=== PATIENT | female | born 1930 | race Caucasian/White ===

== ENCOUNTER 2017-10-01 14:30 | Inpatient (IN) | payer OTHER ==
[2017-10-01 15:22] LABS: ABS Basophils 0 10^3/ul (0-0.2); ABS Eosinophils 0 10^3/ul (0-0.6); ABS Lymphocytes 0.5 10^3/ul (1.0-4.8); ABS Monocytes 0.8 10^3/ul (0-0.8); ABS Neutrophils 6.6 10^3/ul (1.5-7.7); ABS Nucleated RBC 0 10^3/ul; Eosinophil % 0.2 % (0-6); Hematocrit 33 % (35-47); Hemoglobin 10.8 g/dl (12.0-16.0); Mean Corpuscular HGB Conc 33 g/dl (31-36); Mean Corpuscular Hemoglobin 27 pg (27-31); Mean Corpuscular Volume 84 fL (80-97); Mean Platelet Volume 9 um3 (7.4-10.4); Nucleated Red Blood Cells % 0; Platelet Count 146 10^3/ul (150-450); Red Blood Count 3.93 10^6/ul (4.0-5.4); Red Cell Distribution Width 15 % (10.5-15); White Blood Count 7.9 10^3/ul (3.5-10.8)
[2017-10-01 15:34] LABS: EGFR Non-African American 27.6 (>60)
--- NOTE | 2017-10-01 16:05 | RAD ---
HISTORY: Knee pain COMPARISONS: None relevant available time dictation VIEWS: 7, Frontal and lateral views of the right knee and of the right femur FINDINGS: BONE DENSITY: There is diffuse osteopenia. BONES: There is a comminuted, angulated, and displaced fracture of the distal femoral diaphysis. The patient is status post right hip arthroplasty. There is no appreciable periprosthetic fracture. JOINTS: There is osteoporosis of the right knee. The patient is status post right hip arthroplasty. ALIGNMENT: There is no dislocation. SOFT TISSUES: There is peripheral arterial calcification. OTHER FINDINGS: None. IMPRESSION: 1. COMMINUTED, ANGULATED, AND DISPLACED FRACTURE OF THE DISTAL RIGHT FEMUR. 2. STATUS POST RIGHT HIP ARTHROPLASTY. 3. OSTEOPENIA. 4. OSTEOARTHRITIS. 5. PERIPHERAL ARTERIAL DISEASE
--- NOTE | 2017-10-01 16:06 | RAD ---
HISTORY: Femur fracture COMPARISONS: April 06, 2016 VIEWS: 1: frontal portable view of the chest at 3:42 PM FINDINGS: LINES AND TUBES: None. CARDIOMEDIASTINAL SILHOUETTE: The cardiac silhouette is enlarged. Annular calcifications are noted. The cardiomediastinal silhouette is otherwise normal for portable technique. PLEURA: The costophrenic angles are sharp. No pleural abnormalities are noted. LUNG PARENCHYMA: The lungs are clear. ABDOMEN: The upper abdomen is clear. There is no subphrenic gas. BONES AND SOFT TISSUES: Degenerative changes are noted along the spine. IMPRESSION: CARDIOMEGALY
--- NOTE | 2017-10-01 16:09 | RAD ---
HISTORY: Right femur fracture COMPARISONS: December 07, 2014 VIEWS: 1, Single frontal view of the pelvis FINDINGS: BONE DENSITY: There is diffuse osteopenia. BONES: The patient is status post internal fixation of the left femur. The patient is status post right hip arthroplasty. There is no displaced fracture. JOINTS: The patient is status post right hip arthroplasty. There is mild osteophytosis of the left hip and SI joints. ALIGNMENT: There is no dislocation. SOFT TISSUES: There is peripheral arterial calcification. OTHER FINDINGS: None. IMPRESSION: 1. OSTEOPENIA. 2. OSTEOARTHRITIS. 3. PERIPHERAL ARTERIAL DISEASE. 4. STATUS POST RIGHT HIP ARTHROPLASTY AND INTERNAL FIXATION OF THE LEFT FEMUR. 5. NO ACUTE OSSEOUS INJURY. THE DEGREE OF OSTEOPENIA MAY MAKE A NONDISPLACED FRACTURE RADIOGRAPHICALLY OCCULT. IF SYMPTOMS PERSIST, RECOMMEND REPEAT IMAGING.
[2017-10-01] MEDS ORDERED: Al Hydrox/Mg Hydrox/Simet LIQ* 30 ML UDC PO PRN (17:19)
[2017-10-01] MEDS ORDERED: Acetaminophen TAB* 325 MG PO PRN (17:19)
--- NOTE | 2017-10-01 17:43 | ED ---
Indio Crews Nilda, scribed for Sher Swartz MD on 10/01/17 at 1509 . Lower Extremity - HPI Summary HPI Summary: This patient is an 86 year old F BIBA with a chief complaint of constant pain in right knee s/p sliding out of wheel chair at home today, per triage note. The patient rates the pain 5/10 in severity. Symptoms aggravated and alleviated by nothing. Upon entering the room, patient denies pain, SOB, and cough, stating that she feels quite healthy. Triage note states recent sick contacts with family members who have flu and are having difficulty taking care of patient. - History of Current Complaint Chief Complaint: EDExtremityLower Stated Complaint: WEAKNESS,FLU LIKE SYMPTOMS Time Seen by Provider: 10/01/17 14:45 Hx Obtained From: Patient, Medical Records Mechanism Of Injury: Other - sliding out of wheel chair Onset/Duration: Still Present Severity Currently: Moderate Pain Intensity: 5 Pain Scale Used: 0-10 Numeric Timing: Constant Location: Is Discrete @ - RLE, Right knee Associated Signs And Symptoms: Positive: Other - SOB and cough Aggravating Factor(s): Nothing Alleviating Factor(s): Nothing - Allergies/Home Medications Allergies/Adverse Reactions: Allergies Allergy/AdvReac Type Severity Reaction Status Date / Time No Known Allergies Allergy Verified 10/01/17 14:43 Home Medications: Home Medications Acetaminophen [Acetaminophen Extra Strength] 1,000 mg PO TID PRN 10/01/17 [ History Confirmed 10/01/17] Calcium Carbonate/Vitamin D3 [Calcium 600 + Vit D Tablet] 1 each PO BID [History Confirmed 10/01/17] Carvedilol TAB* [Coreg TAB*] 6.25 mg PO BID 10/01/17 [History Confirmed 10/01/17 ] Cholecalciferol TAB* [Vitamin D TAB*] 2,000 units PO DAILY 10/01/17 [History Confirmed 10/01/17] Docusate CAP* [Colace Cap*] 100 mg PO BID PRN 10/01/17 [History Confirmed ] Ferrous Sulfate TAB* 325 mg PO BID 10/01/17 [History Confirmed 10/01/17] Lactulose* 30 ml PO Q6HR PRN 10/01/17 [History Confirmed 10/01/17] Senna TAB* [Senokot TAB*] 1 tab PO DAILY PRN 10/01/17 [History Confirmed ] Warfarin TAB(*) [Coumadin TAB(*)] 4.5 mg PO DAILY 10/01/17 [History Confirmed ] PMH/Surg Hx/FS Hx/Imm Hx Endocrine/Hematology History: Denies: Hx Anticoagulant Therapy Cardiovascular History: Reports: Hx Congestive Heart Failure, Hx Hypertension, Other Cardiovascular Problems/Disorders - a-fib Denies: Hx Pacemaker/ICD Respiratory History: Reports: Hx Chronic Obstructive Pulmonary Disease (COPD) GI History: Reports: Hx Gastroesophageal Reflux Disease, Other GI Disorders - "slow bowels" History: Reports: Hx Chronic Renal Failure Sensory History: Denies: Hx Cataracts, Hx Contacts or Glasses, Hx Eye Injury, Hx Hearing Aid Opthamlomology History: Denies: Hx Cataracts, Hx Contacts or Glasses, Hx Eye Injury Neurological History: Reports: Hx Dementia Comment Only: Other Neuro Impairments/Disorders - Forgetful Psychiatric History: Denies: Hx Panic Disorder - Surgical History Surgery Procedure, Year, and Place: RIGHT HIP Hx Anesthesia Reactions: No Infectious Disease History: No Infectious Disease History: Denies: Traveled Outside the [place] in Last 30 Days - Family History Known Family History: Positive: Hypertension - Social History Alcohol Use: None Substance Use Type: Reports: None Smoking Status (MU): Never Smoked Tobacco Review of Systems Negative: Shortness Of Breath, Cough Positive: Other - right knee pain All Other Systems Reviewed And Are Negative: Yes Physical Exam - Summary Physical Exam Summary: VITAL SIGNS: Reviewed. GENERAL: Patient is a well-developed and nourished female who is lying comfortable in the stretcher. Patient is not in any acute respiratory distress. HEAD AND FACE: No signs of trauma. No ecchymosis, hematomas or skull depressions. No sinus tenderness. EYES: PERRLA, EOMI x 2, No injected conjunctiva, no nystagmus. EARS: Hearing grossly intact. Ear canals and tympanic membranes are within normal limits. MOUTH: Oropharynx within normal limits except dry oral mucosa NECK: Supple, trachea is midline, no adenopathy, no JVD, no carotid bruit, no c- spine tenderness, neck with full ROM. CHEST: Symmetric, no tenderness at palpation LUNGS: Clear to auscultation bilaterally. No wheezing or crackles. CVS: Regular rate and rhythm, S1 and S2 present, no murmurs or gallops appreciated. ABDOMEN: Soft, non-tender. No signs of distention. No rebound no guarding, and no masses palpated. Bowel sounds are normal. EXTREMITIES: FROM in all major joints, no edema, no cyanosis or clubbing. Tenderness in the RLE and right knee NEURO: Alert. Mildly disoriented. No acute neurological deficits. Speech is normal and follows commands. SKIN: Dry and warm Triage Information Reviewed: Yes Vital Signs On Initial Exam: Initial Vitals Temp Pulse Resp BP Pulse Ox 98.7 F 88 16 134/80 92 10/01/17 14:39 10/01/17 14:39 10/01/17 14:39 10/01/17 14:39 10/01/17 14:39 Vital Signs Reviewed: Yes Diagnostics - Vital Signs Vital Signs Temp Pulse Resp BP Pulse Ox 10/01/17 14:44 86 92 10/01/17 14:42 134/80 10/01/17 14:39 98.7 F 88 16 134/80 92 - Laboratory Lab Results: Lab Results 10/01/17 10/01/17 Range/Units 15:13 15:13 WBC 7.9 (3.5-10.8) 10^3/ul RBC 3.93 L (4.0-5.4) 10^6/ul Hgb 10.8 L (12.0-16.0) g/dl Hct 33 L (35-47) % MCV 84 (80-97) fL MCH 27 (27-31) pg MCHC 33 (31-36) g/dl RDW 15 (10.5-15) % Plt Count 146 L (150-450) 10^3/ul MPV 9 (7.4-10.4) um3 Neut % (Auto) 83.0 (38-83) % Lymph % (Auto) 6.0 L (25-47) % [place] % (Auto) 10.4 H (1-9) % Eos % (Auto) 0.2 (0-6) % Baso % (Auto) 0.4 (0-2) % Absolute Neuts (auto) 6.6 (1.5-7.7) 10^3/ul Absolute Lymphs (auto) 0.5 L (1.0-4.8) 10^3/ul Absolute Monos (auto) 0.8 (0-0.8) 10^3/ul Absolute Eos (auto) 0 (0-0.6) 10^3/ul Absolute Basos (auto) 0 (0-0.2) 10^3/ul Absolute Nucleated RBC 0 10^3/ul Nucleated RBC % 0 Sodium 135 (133-145) mmol/L Potassium 4.6 (3.5-5.0) mmol/L Chloride 102 (101-111) mmol/L Carbon Dioxide 27 (22-32) mmol/L Anion Gap 6 (2-11) mmol/L BUN 29 H (6-24) mg/dL Creatinine 1.75 H (0.51-0.95) mg/dL Est GFR ( Amer) 35.4 (>60) Est GFR (Non-Af Amer) 27.6 (>60) BUN/Creatinine Ratio 16.6 (8-20) Glucose 104 H (70-100) mg/dL Calcium 8.7 (8.6-10.3) mg/dL Magnesium 2.0 (1.9-2.7) mg/dL Total Bilirubin 0.80 (0.2-1.0) mg/dL AST 26 (13-39) U/L ALT 9 (7-52) U/L Alkaline Phosphatase 58 (34-104) U/L C-Reactive Protein 13.87 H (< 5.00) mg/L Total Protein 6.4 (6.4-8.9) g/dL Albumin 3.5 (3.2-5.2) g/dL Globulin 2.9 (2-4) g/dL Albumin/Globulin Ratio 1.2 (1-3) Result Diagrams: 10/01/17 15:13 10/01/17 15:13 Lab Statement: Any lab studies that have been ordered have been reviewed, and results considered in the medical decision making process. - Radiology CXR Radiology Interpretation Completed By: Radiologist - CXR, per radiologist, reveals cardiomegaly. Dr. Swartz has reviewed this radiology report. Femur XR Radiology Interpretation Completed By: Radiologist - Femur XR, per radiologist, reveals 1. COMMINUTED, ANGULATED, AND DISPLACED FRACTURE OF THE DISTAL RIGHT FEMUR. 2. STATUS POST RIGHT HIP ARTHROPLASTY. 3. OSTEOPENIA. 4. OSTEOARTHRITIS. 5. PERIPHERAL ARTERIAL DISEASE. Dr. Swartz has reviewed this radiology report. Knee XR Radiology Interpretation Completed By: Radiologist - Knee XR, per radiologist, reveals 1. COMMINUTED, ANGULATED, AND DISPLACED FRACTURE OF THE DISTAL RIGHT FEMUR. 2. STATUS POST RIGHT HIP ARTHROPLASTY. 3. OSTEOPENIA. 4. OSTEOARTHRITIS. 5. PERIPHERAL ARTERIAL DISEASE Dr. Swartz has reviewed this radiology report. Pelvis XR Radiology Interpretation Completed By: Radiologist - Knee XR, per radiologist, reveals 1. COMMINUTED, ANGULATED, AND DISPLACED FRACTURE OF THE DISTAL RIGHT FEMUR. 2. STATUS POST RIGHT HIP ARTHROPLASTY. 3. OSTEOPENIA. 4. OSTEOARTHRITIS. 5. PERIPHERAL ARTERIAL DISEASE Dr. Swartz has reviewed this radiology report. Lower Extremity Course/Dx - Course Assessment/Plan: This patient is an 86 year old F BIBA with a chief complaint of constant pain in right knee s/p sliding out of wheel chair at home today, per triage note. The patient rates the pain 5/10 in severity. Symptoms aggravated and alleviated by nothing. Upon entering the room, patient denies pain, SOB, and cough, stating that she feels quite healthy. Triage note states recent sick contacts with family members who have flu and are having difficulty taking care of patient. Test results show slight anemia, renal insufficiency. CXR, per radiologist, reveals cardiomegaly. Dr. Swartz has reviewed this radiology report. Femur XR, per radiologist, reveals 1. COMMINUTED, ANGULATED, AND DISPLACED FRACTURE OF THE DISTAL RIGHT FEMUR. 2. STATUS POST RIGHT HIP ARTHROPLASTY. 3. OSTEOPENIA. 4. OSTEOARTHRITIS. 5. PERIPHERAL ARTERIAL DISEASE. Dr. Swartz has reviewed this radiology report. Knee XR, per radiologist, reveals 1. COMMINUTED, ANGULATED, AND DISPLACED FRACTURE OF THE DISTAL RIGHT FEMUR. 2. STATUS POST RIGHT HIP ARTHROPLASTY. 3. OSTEOPENIA. 4. OSTEOARTHRITIS. 5. PERIPHERAL ARTERIAL DISEASE. Dr. Swartz has reviewed this radiology report. Pelvis XR, per radiologist, reveals 1. OSTEOPENIA. 2. OSTEOARTHRITIS. 3. PERIPHERAL ARTERIAL DISEASE. 4. STATUS POST RIGHT HIP ARTHROPLASTY AND INTERNAL FIXATION OF THE LEFT FEMUR. 5. NO ACUTE OSSEOUS INJURY. THE DEGREE OF OSTEOPENIA MAY MAKE A NONDISPLACED FRACTURE. RADIOGRAPHICALLY OCCULT. IF SYMPTOMS PERSIST, RECOMMEND REPEAT IMAGING. Dr. Swartz has reviewed this radiology report. In the ED Course, the patient remains stable. I discussed the case with Dr. Yuan (Ortho) and he will consult with this patient. I also discussed the case with Dr. Galvin ( Hospitalist) who accepted patient for admission. Patient is hemodynamically stable, alert, and not oriented. - Diagnoses Differential Diagnosis/HQI/PQRI: Positive: Bursitis, Cellulitis, Contusion, Dislocation, Fracture (Closed), Sprain, Strain Provider Diagnoses: Closed fracture of right distal femur, Confusion, Unable to care for herself - Physician Notifications Discussed Care Of Patient With: Emreson Yuan - Ortho Time Discussed With Above Provider: 16:11 Instructed by Provider To: Other - agrees to consult for pt tomorrow. Discharge - Discharge Plan Condition: Stable Disposition: ADMITTED TO [facility] Referrals: No Primary Care Phys,NOPCP [Primary Care Provider] - The documentation as recorded by the Indio linder Nilda accurately reflects the service I personally performed and the decisions made by me, Sher Swartz MD.
[2017-10-01] MEDS ORDERED: Enoxaparin(*) 40 MG/0.4 ML SYR SUBCUT SCH (18:00)
[2017-10-01 18:08] LABS: INR 1.79 (0.77-1.02)
[2017-10-01] MEDS ORDERED: Phytonadione Oral Solution* 5 MG/25 ML UDC PO ONE (20:00)
[2017-10-01] MEDS: Atorvastatin* 20 MG TAB PO SCH (20:03)
[2017-10-01] MEDS: Ferrous Sulfate TAB* 325 MG PO SCH (20:03)
[2017-10-01] MEDS: Carvedilol TAB* 6.25 MG PO SCH (20:05)
--- NOTE | 2017-10-01 22:08 | HP ---
ADDENDUM NOW INCLUDED ON THIS REPORT CC: [facility] * HISTORY AND PHYSICAL: DATE OF ADMISSION: 10/01/17 TIME OF ADMISSION: 5 p.m. CHIEF COMPLAINT: Fall. HISTORY OF PRESENT ILLNESS: This is an 86-year-old female with history of dementia, who was brought to the emergency department via EMS because her sister -in- law called. There are several different stories pertaining to the history of present illness. I spoke with her brother, Franky, who is her power of skinning machine feeder. He says that his called EMS because Ms. Gonsales had been weak this morning. She is usually able to walk from bed to the bathroom with a walker, but this morning she got up and walked a few steps and fell, so they called EMS. He also notes that she has been more weak recently and the rest of the family has influenza, so they were concerned that she may as well. Her nurse in the emergency department, however, reports a different report from EMS and says that they were called also because of the fall but that her family was ill and was unable to take care of her, so recommended that she be transferred to the emergency department. Either way, Ms. Gonsales is unable to provide the history to me. She does not know why she is here and has no pain or complaints. She does not recall falling this morning. PAST MEDICAL HISTORY: AFib, on anticoagulation; CVA; hypertension; hyperlipidemia; dementia; congestive heart failure of unknown etiology. HOME MEDICATIONS: 1. Furosemide 40 mg daily. 2. Warfarin 4.5 mg daily. 3. Calcium 1500 mg b.i.d. 4. Coreg 6.25 twice a day. 5. Simvastatin 40 mg daily. 6. Mirtazapine 30 mg daily. 7. Vitamin D 2000 units daily. 8. KCl 10 mEq daily. 9. Tylenol 1000 mg b.i.d. p.r.n. 10. Ferrous sulfate 325 mg b.i.d. 11. Colace 100 mg b.i.d. p.r.n. constipation. 12. Lactulose 30 mL q.6 hours p.r.n. constipation. 13. Senna tab daily p.r.n. constipation. ALLERGIES: No known drug allergies. SOCIAL HISTORY: She lives with her brother and his . He is her power of skinning machine feeder, his name is Franky. REVIEW OF SYSTEMS: A 12-point review of systems is negative. However, the reliability of this is quite poor due to dementia. PHYSICAL EXAMINATION GENERAL: Alert, elderly, pleasant female in no distress. She is oriented to person and knows she is in the hospital but does not know what city or state she is in and does not know the year. She has poor short-term recall, but is able to tell me that she lives with her brother and [id number] which is correct. VITAL SIGNS: Blood pressure 107/81, pulse ox 87% on room air, heart rate 84, temperature 98.7 degrees. HEENT: Pupils equal round and reactive to light at 2 mm bilaterally. Moist mucosa. No pharyngeal exudates. NECK: No cervical adenopathy. No JVP. LUNGS: Clear bilaterally. CHEST: Irregular rhythm. PMI is nondisplaced. ABDOMEN: Soft, nontender, and nondistended. No guarding or rebound. EXTREMITIES: The right leg is in an immobilizer. She is unable to lift the leg off the bed due to pain; however, she has good passive range of motion in the right hip. Her distal pulses are 2+, DP and PT, and distal sensation is intact. DIAGNOSTIC STUDIES/LAB DATA: Sodium 135, potassium 4.6, chloride 102, bicarb 27, creatinine 1.75, glucose 104. Troponin 0.05. TSH 1.29. Imaging: Chest x-ray shows cardiomegaly. Femur x-ray shows a comminuted angulated and displaced fracture of the distal right femur. ASSESSMENT AND PLAN: This is an 86-year-old female with history of atrial fibrillation, dementia, cerebrovascular accident, and chronic kidney disease, who is presenting after a fall from home. 1. Fall with femur fracture. It is unclear if she fell and caused the femur fracture or if she had the femur fracture, which caused her to fall this morning , either way she and her family are agreeable to surgical evaluation, so I am consulting Orthopedic Surgery. She requires no pain management at this time as she has no pain. I suspect this was a mechanical fall; however, after a surgical evaluation, she will certainly need physical therapy regardless. Given her family's report of increasing weakness over the past several days, I will also check her for influenza. Otherwise, on my exam and based on laboratory data, she has no evidence of an infectious or metabolic etiology of her fall. 2. Atrial fibrillation. She is on warfarin; however, an INR has not been checked. I will check this stat to ensure no coagulopathy in the setting of the femur fracture. 3. Cerebrovascular accident. Continue statin. She is not on an aspirin and I am unclear why not. We will hold for now until we can get more records as her family is unreliable. 4. Dementia. She is unable to make her own decision. Her power of skinning machine feeder is her brother, Franky. Franky can be reached at [phone]. I am concerned about her safety at home given the fracture and my inability to understand what has been occurring at home with her family. I would like to consult Social Work to evaluate her home setting to see if adult protective services would be appropriate for her. 5. Chronic kidney disease. Her renal function is at baseline. 6. Congestive heart failure. Her most recent echocardiogram was from 2014 and showed LVH with normal LV function at 50% to 55% with severely dilated left atrium and a low normal right ventricular systolic function. She has moderate- to-severe mitral regurgitation and [id number] tricuspid regurgitation. She is compensated at this time. 7. Disposition. Admit to Medicine with Ortho consult. 8. Diet. Unrestricted. 9. Activity. Bed rest. ADDENDUM: I discussed code status with Lara's brother, Franky. He is not ready to make this decision. He agrees that resuscitation would be more harmful than beneficial, but says he will think about it tonight and will be available to discuss this again. I suggested DNR and DNI given her dementia and other comorbidities and we will follow up on this conversation. [id number]/[facility] #: [id number]/[facility] #: [id number] EFREN
--- NOTE | 2017-10-01 22:16 | HP ---
HISTORY AND PHYSICAL: ADDENDUM: I discussed code status with Lara's brother, Franky. He is not ready to make this decision. He agrees that resuscitation would be more harmful than beneficial, but says he will think about it tonight and will be available to discuss this again. I suggested DNR and DNI given her dementia and other comorbidities and we will follow up on this conversation. [id number]/[facility]PS #: [id number] EFREN
--- NOTE | 2017-10-01 22:41 | HP ---
ORTHOPEDICS CONSULTATION/HISTORY AND PHYSICAL: DATE OF CONSULT/ADMISSION: 10/01/17 REQUESTING SERVICE: Emergency room. CONSULTING SERVICE: Orthopedics. CHIEF COMPLAINT: Right leg pain. HISTORY OF PRESENT ILLNESS: This is an 86-year-old woman who complains of right lower extremity pain, but does not recall the injury. Per report, she did fall out of her wheelchair at home earlier today as reported by family. Pain is worse with motion of the right lower extremity and alleviated at rest and mobilization. There is associated swelling but no bruising. PAST MEDICAL HISTORY: 1. Dementia. 2. CVA. 3. Hypertension. 4. Hyperlipidemia. 5. Atrial fibrillation. PAST SURGICAL HISTORY: Bilateral hip fracture surgery. MEDICATIONS: 1. Carvedilol. 2. Warfarin. 3. Senna. 4. Lactulose. 5. Docusate. 6. Acetaminophen. ALLERGIES: No known drug allergies. FAMILY HISTORY: Hypertension. SOCIAL HISTORY: Lives with her brother and his (brother is Franky Batesman, telephone #[phone]). At baseline she uses either a walker or wheelchair. REVIEW OF SYSTEMS: Negative for recent fever, visual changes, difficulty swallowing, chest pain, shortness of breath, abdominal pain, hematuria, easy bruising, diffuse weakness or lack of coordination, and diffuse rash. PHYSICAL EXAMINATION GENERAL: She is well appearing and in no apparent distress. VITAL SIGNS: Pulse rate 77, oxygen saturation 92%, blood pressure 107/59. CARDIOVASCULAR: Pulse examination demonstrates weak pedal pulses but feet that are warm and well perfused bilaterally. There are varicosities. Lung sounds clear bilaterally. ABDOMEN: Soft and nontender. LYMPHATIC: No lymphadenopathy appreciated. PSYCHIATRIC/NEUROLOGICAL: Appropriate affect. She is alert and oriented to person, but not place or time. No significant abnormality in coordination appreciated. She has normal reflex of the affected extremity. MUSCULOSKELETAL: She moves her bilateral upper extremities and left lower extremity without any pain. No evidence instability or tenderness. She has good strength. There is no gross deformity. Examination of the right lower extremity reveals the skin is intact. There is some swelling above the distal thigh. No ecchymosis. She is tender at the distal thigh as well. No tenderness in her leg. The foot is warm and well perfused, has weakly palpable dorsalis pedis pulse. Sensation is intact. She is able to flex and extend the ankle and toes. SKIN: Bilateral upper and left lower extremity exam demonstrates no ulcerative lesions. DIAGNOSTIC STUDIES/LAB DATA: X-rays of the right femur and knee do reveal a displaced distal femur fracture. She does have a hip hemiarthroplasty proximal to this. Hematocrit 33. Creatinine 1.75. ASSESSMENT AND PLAN: An 86-year-old woman with dementia, on warfarin, who appears to have fallen out of her wheelchair today and sustained a right closed distal femur fracture. Given the pattern of the injury, I do recommend surgical intervention for pain control and function. In the meantime, she should be in a knee immobilizer. She will be admitted to hospitalist service. I would like to check an INR given the warfarin. She should be n.p.o. after midnight. I spoke with her brother to discuss surgery as he is the healthcare proxy, we discussed the risks and benefits at length. We also discussed non-op treatment. He expressed his desire to move forward with surgery so we will plan on the operating room when she is medically cleared. [id number]/[facility] #: [id number] EFREN
[2017-10-02 05:10] LABS: ABS Basophils 0 10^3/ul (0-0.2); ABS Eosinophils 0 10^3/ul (0-0.6); ABS Lymphocytes 0.8 10^3/ul (1.0-4.8); ABS Monocytes 1.2 10^3/ul (0-0.8); ABS Nucleated RBC 0 10^3/ul; Eosinophil % 0 % (0-6); Hematocrit 30 % (35-47); Hemoglobin 9.9 g/dl (12.0-16.0); Lymphocyte % 9.7 % (25-47); Mean Corpuscular HGB Conc 33 g/dl (31-36); Mean Corpuscular Hemoglobin 28 pg (27-31); Mean Corpuscular Volume 84 fL (80-97); Mean Platelet Volume 9 um3 (7.4-10.4); Nucleated Red Blood Cells % 0; Platelet Count 131 10^3/ul (150-450); Red Blood Count 3.55 10^6/ul (4.0-5.4); Red Cell Distribution Width 15 % (10.5-15)
[2017-10-02 05:43] LABS: EGFR Non-African American 26.5 (>60)
[2017-10-02 08:20] LABS: INR 1.48 (0.77-1.02)
[2017-10-02] MEDS: Ferrous Sulfate TAB* 325 MG PO SCH ×2 (09:23→22:49)
[2017-10-02] MEDS: Furosemide TAB* 20 MG PO SCH (09:23)
[2017-10-02] MEDS: Potassium Chlor TAB* 10 MEQ TAB.ER PO SCH (09:23)
[2017-10-02] MEDS: Mirtazapine TAB* 15 MG PO SCH (09:23)
[2017-10-02] MEDS: Cholecalciferol TAB* 1000 UNITS PO SCH (09:24)
[2017-10-02] MEDS: Carvedilol TAB* 6.25 MG PO SCH ×2 (09:24→22:49)
[2017-10-02] MEDS ORDERED: Famotidine IV* 10 MG/ML 2 ML (20 mg) IV SLOW PU ONE (10:00)
[2017-10-02] MEDS: Oseltamivir SUSP 30 MG dose* 30 MG/5 ML ORAL.SYRIN PO SCH (12:02)
--- NOTE | 2017-10-02 12:45 | PN ---
Progress Note - Progress Note Date of Service: 10/02/17 Note: The risk-benefit ration for having ORIF of her fracture is not significantly changed by her diagnosis of influenza. If anything, I think her influenza is a reason to expedite her ORIF.
--- NOTE | 2017-10-02 12:49 | PN ---
Progress Note - Progress Note Date of Service: 10/02/17
--- NOTE | 2017-10-02 13:13 | PN ---
Subjective Date of Service: 10/02/17 Interval History: No c/o. Objective Active Medications: Acetaminophen (Tylenol Tab*) 650 mg PO Q4H PRN PRN Reason: FEVER/PAIN Last Admin: 10/02/17 01:41 Dose: 650 mg Al Hydrox/Mg Hydrox/Simethicone (Maalox Plus*) 30 ml PO Q6H PRN PRN Reason: INDIGESTION Atorvastatin Calcium (Lipitor*) 20 mg PO BEDTIME [facility] Last Admin: 10/01/17 20:03 Dose: 20 mg Carvedilol (Coreg Tab*) 6.25 mg PO BID [facility] Last Admin: 10/02/17 09:24 Dose: 6.25 mg Cholecalciferol (Vitamin D Tab*) 2,000 units PO DAILY [facility] Last Admin: 10/02/17 09:24 Dose: 2,000 units Docusate Sodium (Colace Cap*) 100 mg PO BID PRN PRN Reason: CONGESTION Ferrous Sulfate (Ferrous Sulfate Tab*) 325 mg PO BID [facility] Last Admin: 10/02/17 09:23 Dose: 325 mg Furosemide (Lasix Tab*) 20 mg PO DAILY [facility] Last Admin: 10/02/17 09:23 Dose: 20 mg Lactulose (Lactulose*) 30 ml PO Q6HR PRN PRN Reason: CONSTIPATION Mirtazapine (Remeron Tab*) 30 mg PO DAILY [facility] Last Admin: 10/02/17 09:23 Dose: 30 mg Oseltamivir Phosphate (Tamiflu Susp 30 Mg Dose*) 30 mg PO DAILY [facility] Last Admin: 10/02/17 12:02 Dose: 30 mg Potassium Chloride (Klor Con Er Tab*) 10 meq PO DAILY [facility] Last Admin: 10/02/17 09:23 Dose: 10 meq Senna (Senokot Tab*) 1 tab PO DAILY PRN PRN Reason: CONSTIPATION Warfarin Sodium (Coumadin Tab(*)) 4.5 mg PO DAILY@1700 [facility] PRN Reason: Protocol Vital Signs - 8 hr 10/02/17 10/02/17 07:45 07:46 Temperature 98.2 F Pulse Rate 154 Respiratory 18 20 Rate Blood Pressure 114/61 (mmHg) O2 Sat by Pulse 87 Oximetry Oxygen Devices in Use Now: None Appearance: Alert, partly up in bed. In good spirits. Looks comfortable. Eyes: No Scleral Icterus Respiratory: Symmetrical Chest Expansion and Respiratory Effort, Clear to Auscultation, Clear to Percussion Cardiovascular: NL Sounds; No Murmurs; No JVD, RRR, No Edema, - Extremities: No Edema, No Clubbing, Cyanosis, - - R leg everted, not shortened. Skin: No Nodules or Sclerosis, - - multiple seborrheic keratoses on trunk. Neurological: Alert and Oriented x 3 Result Diagrams: 10/02/17 05:03 10/02/17 05:03 Additional Lab and Data: Lab Results 10/01/17 10/01/17 Range/Units 15:13 15:13 WBC 7.9 (3.5-10.8) 10^3/ul RBC 3.93 L (4.0-5.4) 10^6/ul Hgb 10.8 L (12.0-16.0) g/dl Hct 33 L (35-47) % MCV 84 (80-97) fL MCH 27 (27-31) pg MCHC 33 (31-36) g/dl RDW 15 (10.5-15) % Plt Count 146 L (150-450) 10^3/ul MPV 9 (7.4-10.4) um3 Neut % (Auto) 83.0 (38-83) % Lymph % (Auto) 6.0 L (25-47) % [place] % (Auto) 10.4 H (1-9) % Eos % (Auto) 0.2 (0-6) % Baso % (Auto) 0.4 (0-2) % Absolute Neuts (auto) 6.6 (1.5-7.7) 10^3/ul Absolute Lymphs (auto) 0.5 L (1.0-4.8) 10^3/ul Absolute Monos (auto) 0.8 (0-0.8) 10^3/ul Absolute Eos (auto) 0 (0-0.6) 10^3/ul Absolute Basos (auto) 0 (0-0.2) 10^3/ul Absolute Nucleated RBC 0 10^3/ul Nucleated RBC % 0 Sodium 135 (133-145) mmol/L Potassium 4.6 (3.5-5.0) mmol/L Chloride 102 (101-111) mmol/L Carbon Dioxide 27 (22-32) mmol/L Anion Gap 6 (2-11) mmol/L BUN 29 H (6-24) mg/dL Creatinine 1.75 H (0.51-0.95) mg/dL Est GFR ( Amer) 35.4 (>60) Est GFR (Non-Af Amer) 27.6 (>60) BUN/Creatinine Ratio 16.6 (8-20) Glucose 104 H (70-100) mg/dL Calcium 8.7 (8.6-10.3) mg/dL Magnesium 2.0 (1.9-2.7) mg/dL Total Bilirubin 0.80 (0.2-1.0) mg/dL AST 26 (13-39) U/L ALT 9 (7-52) U/L Alkaline Phosphatase 58 (34-104) U/L C-Reactive Protein 13.87 H (< 5.00) mg/L Total Protein 6.4 (6.4-8.9) g/dL Albumin 3.5 (3.2-5.2) g/dL Globulin 2.9 (2-4) g/dL Albumin/Globulin Ratio 1.2 (1-3) Microbiology and Other Data: Microbiology 10/01/17 21:20 Influenza Types A,B Antigen (ARIANE) - Final Nasal Specimen received for Influenza A/B Molecular testing Assess/Plan/Problems-Billing Assessment: - Patient Problems (1) Fracture of distal end of right femur Current Visit: Yes Status: Acute Code(s): S72.401A - UNSP FRACTURE OF LOWER END OF RIGHT FEMUR, INIT FOR CLOS FX SNOMED Code(s): 560166576 Comment: For ORIF 10/02. INR 1.48 10/02. (2) Atrial fibrillation Current Visit: Yes Status: Acute Code(s): I48.91 - UNSPECIFIED ATRIAL FIBRILLATION SNOMED Code(s): 18984816 Comment: Resume warfarin post-op. INR 1.48 10/02. Contine carvedilol. (3) Influenza B Current Visit: Yes Status: Acute Code(s): J10.1 - FLU DUE TO OTH IDENT INFLUENZA VIRUS W OTH RESP MANIFEST SNOMED Code(s): 93192974 Comment: Complete oseltamivir course, dose adjusted for stage 3 CKD. (4) Dementia Current Visit: Yes Status: Acute Code(s): F03.90 - UNSPECIFIED DEMENTIA WITHOUT BEHAVIORAL DISTURBANCE SNOMED Code(s): 27904159 Comment: No behavior disturbances noted.
[2017-10-02] MEDS ORDERED: Bupivacaine 0.25% SDV* 30 ML ONE (14:50)
[2017-10-02] MEDS ORDERED: Midazolam* 1 MG/ML 10 ML VIAL (10 MG) ONE (15:02)
[2017-10-02] MEDS ORDERED: Atracurium* 10 MG/ML 10 ML VIAL ONE (15:02)
[2017-10-02] MEDS ORDERED: KETAMINE HCL* 50 MG/ML 10 ML VIAL ONE (15:02)
[2017-10-02] MEDS ORDERED: fentaNYL* 50 MCG/ML 2 ML VIAL (100 MCG VIAL) ONE (15:02)
[2017-10-02 15:43] LABS: INR 1.25 (0.77-1.02)
[2017-10-02] MEDS ORDERED: ceFAZolin 2 GM in 100 MLS NS (*) BAG IVPB ONE (16:20)
[2017-10-02] MEDS ORDERED: Bupivacaine 0.5% SDV PF* 10-30ML VIAL ONE ×2 (16:32→18:59)
[2017-10-02] MEDS ORDERED: Morphine PF AMP (0.5MG/ML)* 5 MG/10 ML AMP ONE (17:07)
[2017-10-02] MEDS ORDERED: Ondansetron INJ* 2 MG/ML VIAL IV PRN ×2 (18:10→18:11)
[2017-10-02] MEDS ORDERED: Naloxone* 0.4 MG/ML 1 ML VIAL IV PRN ×2 (18:10→18:11)
[2017-10-02] MEDS ORDERED: diPHENhydraMINE IV* 50 MG/ML 1 ml VIAL (BENADRYL) IV PRN (18:11)
[2017-10-02] MEDS ORDERED: EPINEPHRINE 1 MG/ML 1 ML VIAL ONE (19:00)
--- NOTE | 2017-10-02 20:39 | RAD ---
INDICATION: Femur fracture, trauma COMPARISONS: October 01, 2012 TECHNIQUE: Fluoroscopy was provided for a surgical procedure. Total fluoroscopy time is: 58 seconds FINDINGS: Spot images demonstrate internal fixation of the femur. IMPRESSION: FLUOROSCOPY WAS PROVIDED FOR A SURGICAL PROCEDURE CPT II Codes: 6045F
[2017-10-02] MEDS: Warfarin TAB(*) 1 MG PO SCH (22:48)
[2017-10-02] MEDS: Atorvastatin* 20 MG TAB PO SCH (22:48)
[2017-10-02] MEDS ORDERED: Morphine INJ* 2 MG/ML 1 ML CARPUJECT IV PRN (23:42)
[2017-10-03] MEDS ORDERED: NS 0.9% 500 ML* 500 ML IV ONE (00:42)
[2017-10-03] MEDS: ceFAZolin 1 GM* Q8H x 3 doses IVPB SCH ×6 (01:23→17:42)
[2017-10-03] MEDS: Enoxaparin(*) 30 MG/0.3 ML SYR SUBCUT SCH (01:24)
[2017-10-03] MEDS ORDERED: Morphine INJ* 2 MG/ML 1 ML CARPUJECT IV PRN (09:30)
[2017-10-03] MEDS: Mirtazapine TAB* 15 MG PO SCH (09:45)
[2017-10-03] MEDS: Potassium Chlor TAB* 10 MEQ TAB.ER PO SCH (09:45)
[2017-10-03] MEDS: Furosemide TAB* 20 MG PO SCH (09:46)
[2017-10-03] MEDS: Cholecalciferol TAB* 1000 UNITS PO SCH (09:46)
[2017-10-03] MEDS: Ferrous Sulfate TAB* 325 MG PO SCH (09:46)
[2017-10-03] MEDS: Carvedilol TAB* 6.25 MG PO SCH ×2 (09:51→22:05)
[2017-10-03] MEDS: Oseltamivir SUSP 30 MG dose* 30 MG/5 ML ORAL.SYRIN PO SCH (09:51)
--- NOTE | 2017-10-03 11:32 | PN ---
Progress Note - Progress Note Date of Service: 10/03/17 SOAP: Subjective: 86 y/o female with fall from wheelchair s/p ORIF R femur 10/02/2017. Patient with dementia baseline, denies pain, no questions. VSS. mild tachy, afebrile overnight (Tmax 100). Objective: General- well appearing, NAD AO resting in bed comfortably. MSK- Surgical dressing intact, + DF/PF with SITLT b/l LE, minimal edema R LE. non-palpable PT b/l, however b/l feet warm, well perfused. Vital Signs Temp 99 F 10/03/17 09:32 Pulse 91 10/03/17 07:36 Resp 16 10/03/17 08:10 BP 140/70 10/03/17 07:36 Pulse Ox 93 10/03/17 07:36 Intake & Output 10/02/17 10/03/17 10/03/17 18:59 06:59 18:59 Intake Total 0 1430 200 Balance 0 1430 200 Weight 79.923 kg Intake: IV Fluids 1030 NS (0.9%) 30 lr 1000 Oral 0 400 200 Other: Estimated Void Large # Bowel Movements 0 Estimated Blood Loss 100 Comment # Voids 1 Assessment: Stable 86 y/o female with fall from wheelchair s/p ORIF R femur 10/02/2017. Plan: - DVT prophylaxis- lovenox, OK to restart coumadin - Toe touch weight bearing R LE - Continue pain medication - Rehab D/C - Follow up with Dr. Yuan within 10-14 days post-op - PT consult- ROMAT, brace not needed Active Medications Generic Name Dose Route Start Last Admin Trade Name Freq PRN Reason Stop Dose Admin Acetaminophen 650 mg 10/02/17 18:13 Tylenol Tab* PO Q6H PRN FEVER/PAIN Al Hydrox/Mg Hydrox/Simethicone 30 ml 10/01/17 17:19 Maalox Plus* PO Q6H PRN INDIGESTION Atorvastatin Calcium 20 mg 10/01/17 21:00 10/02/17 22:48 Lipitor* PO 20 mg BEDTIME [facility] Administration Carvedilol 6.25 mg 10/01/17 21:00 10/03/17 09:51 Coreg Tab* PO 6.25 mg BID [facility] Administration Cholecalciferol 2,000 units 10/02/17 09:00 10/03/17 09:46 Vitamin D Tab* PO 2,000 units DAILY [facility] Administration Docusate Sodium 100 mg 10/01/17 17:24 Colace Cap* PO BID PRN CONGESTION Enoxaparin Sodium 30 mg 10/03/17 01:00 10/03/17 01:24 Lovenox(*) SUBCUT 30 mg Q24H [facility] Administration Ferrous Sulfate 325 mg 10/01/17 21:00 10/03/17 09:46 Ferrous Sulfate Tab* PO 325 mg BID [facility] Administration Furosemide 20 mg 10/02/17 09:00 10/03/17 09:46 Lasix Tab* PO 20 mg DAILY [facility] Administration Cefazolin Sodium 1 gm/ Sodium 50 mls @ 200 mls/hr 10/03/17 01:00 10/03/17 09: 42 Chloride IVPB 10/03/17 17:14 200 mls/hr Q8H [facility] Administration Lactulose 30 ml 10/01/17 17:24 Lactulose* PO Q6HR PRN CONSTIPATION Mirtazapine 30 mg 10/02/17 09:00 10/03/17 09:45 Remeron Tab* PO 30 mg DAILY [facility] Administration Morphine Sulfate 2 mg 10/03/17 09:30 Morphine Inj (Syringe)* IV Q2H PRN PAIN - BREAKTHROUGH Naloxone HCl 0.08 mg 10/02/17 18:10 Narcan* IV 10/03/17 18:09 Q2M PRN severe induced resp depression Oseltamivir Phosphate 30 mg 10/02/17 11:00 10/03/17 09:51 Tamiflu Susp 30 Mg Dose* PO 30 mg DAILY [facility] Administration Potassium Chloride 10 meq 10/02/17 09:00 10/03/17 09:45 Klor Con Er Tab* PO 10 meq DAILY [facility] Administration Senna 1 tab 10/01/17 17:24 Senokot Tab* PO DAILY PRN CONSTIPATION Warfarin Sodium 4.5 mg 10/02/17 17:00 10/02/17 22:48 Coumadin Tab(*) PO 4.5 mg DAILY@1700 [facility] Administration Protocol
--- NOTE | 2017-10-03 12:25 | PN ---
Progress Note - Progress Note Date of Service: 10/03/17 Note: Anesthesia duramorph followup, patient remains pleasantly confused, moves her legs, seems comfortable at rest, s/p femur ORIF, continue oral meds
--- NOTE | 2017-10-03 14:11 | OP ---
DATE OF OPERATION: 10/02/17 - ROOM #404 DATE OF : 30 SURGEON: Emerson Yuan MD IN STORE BANKER: KENRICK Ibarra. Shirin's assistance was necessary for positioning, retraction, instrumentation, and closure. ANESTHESIOLOGIST: Brian Farley MD ANESTHESIA: Spinal with a femoral nerve block. PRE-OP DIAGNOSIS: Right distal femur fracture. POST-OP DIAGNOSIS: Right distal femur fracture. OPERATIVE PROCEDURE: Open reduction and internal fixation of right distal femur fracture. ESTIMATED BLOOD LOSS: 100 cc. TOURNIQUET TIME: None. SPECIMENS: None. IMPLANTS: A 12-hole Synthes VA distal femur plate and Synthes locking screws. COMPLICATIONS: None. STATUS: Stable from the operating room to the recovery room and then back to the hospitalist service on the floor. INDICATIONS FOR PROCEDURE: Lara sustained a mechanical fall yesterday with a right distal femur fracture. I discussed both operative and nonoperative options with her healthcare proxy yesterday as well as today. After the discussion, he decided to move forward with surgery. We carefully reviewed the nature and risks of the surgery in detail. These included wound problems, infection, iatrogenic fracture, imperfect reduction, imperfect positioning of the hardware, hardware failure, need for further surgery, and even the chance of a catastrophic complication such as loss of limb or . DESCRIPTION OF PROCEDURE: Informed written consent was obtained from the healthcare proxy. The patient was then brought to the operating room and anesthesia was induced. The patient was carefully positioned on the Lazaro table and all bony prominences were padded with great care. A chlorhexidine based pre- scrub was used followed by a standard prep and drape with ChloraPrep. A surgical safety pause was then conducted in which we confirmed the appropriate patient, extremity, planned procedure, availability of equipment , indication and administration of prophylactic antibiotics. We began by using fluoroscopy to obtain a reduction with traction in external rotation. This made the alignment of the leg similar to her other side. I then made an approximately 12 cm incision over the lateral knee and distal femur. The dissection was carried down through the iliotibial band to the lateral distal femur. This was cleared off with a Guillen. The Guillen was then brought in a submuscular manner up the lateral side of the femur. I stayed on bone the entire time. A 12-hole Synthes distal femur variable angle locking plate was then slid submuscularly along the femur. Fluoroscopy was used to confirm adequate placement on AP and lateral views. Once we were happy with both the reduction and the placement of the plate, holding pins were placed in the distal fragment as well as in the most proximal hole on the plate. Then, the push- pull reduction instrument was used to pull the proximal femoral shaft closer to the plate. At this time, locking screws were placed in the distal fragment through the plate with the use of locking guide. She had very poor bone quality, so locking screws were used. I then placed screws in the proximal fragment in the femoral shaft and the plate crossed up to where her hip hemiarthroplasty was, so at this point a unicortical screw was used. Meticulous hemostasis was maintained throughout. Final fluoroscopic images were taken, which showed adequate reduction and placement of hardware. The wounds were copiously irrigated and closed in a layered fashion utilizing #1 Vicryl, 2-0 Vicryl and skin robert. A sterile dressing was then applied, and the patient was awakened from anesthesia and taken to the recovery room. All needle and sponge counts were correct at the end of the case. There were no complications. ATTESTATION: I attest that I was present, scrubbed and performed the entire procedure myself. POSTOPERATIVE PLAN: She will get Lovenox 40 sc daily until back to therapeutic on her Coumadin. She will be touch-down weightbearing on the right lower extremity with range of motion as tolerated at the hip and knee. I will see her back in the office in 2 weeks for likely skin staple removal. [id number]/[facility] #: [id number] EFREN
--- NOTE | 2017-10-03 14:39 | PN ---
Subjective Interval History: No c/o, denies pain. Objective Active Medications: Acetaminophen (Tylenol Tab*) 650 mg PO Q6H PRN PRN Reason: FEVER/PAIN Al Hydrox/Mg Hydrox/Simethicone (Maalox Plus*) 30 ml PO Q6H PRN PRN Reason: INDIGESTION Atorvastatin Calcium (Lipitor*) 20 mg PO BEDTIME [facility] Last Admin: 10/02/17 22:48 Dose: 20 mg Carvedilol (Coreg Tab*) 6.25 mg PO BID [facility] Last Admin: 10/03/17 09:51 Dose: 6.25 mg Cholecalciferol (Vitamin D Tab*) 2,000 units PO DAILY [facility] Last Admin: 10/03/17 09:46 Dose: 2,000 units Docusate Sodium (Colace Cap*) 100 mg PO BID PRN PRN Reason: CONGESTION Enoxaparin Sodium (Lovenox(*)) 30 mg SUBCUT Q24H [facility] Last Admin: 10/03/17 01:24 Dose: 30 mg Ferrous Sulfate (Ferrous Sulfate Tab*) 325 mg PO DAILY [facility] Furosemide (Lasix Tab*) 20 mg PO DAILY [facility] Last Admin: 10/03/17 09:46 Dose: 20 mg Cefazolin Sodium 1 gm/ Sodium (Chloride) 50 mls @ 200 mls/hr IVPB Q8H [facility] Stop: 10/03/17 17:14 Last Admin: 10/03/17 09:42 Dose: 200 mls/hr Lactulose (Lactulose*) 30 ml PO Q6HR PRN PRN Reason: CONSTIPATION Mirtazapine (Remeron Tab*) 15 mg PO DAILY [facility] Morphine Sulfate (Morphine Inj (Syringe)*) 2 mg IV Q2H PRN PRN Reason: PAIN - BREAKTHROUGH Naloxone HCl (Narcan*) 0.08 mg IV Q2M PRN PRN Reason: severe induced resp depression Stop: 10/03/17 18:09 Oseltamivir Phosphate (Tamiflu Susp 30 Mg Dose*) 30 mg PO DAILY [facility] Last Admin: 10/03/17 09:51 Dose: 30 mg Potassium Chloride (Klor Con Er Tab*) 10 meq PO DAILY [facility] Last Admin: 10/03/17 09:45 Dose: 10 meq Senna (Senokot Tab*) 1 tab PO DAILY PRN PRN Reason: CONSTIPATION Warfarin Sodium (Coumadin Tab(*)) 4.5 mg PO DAILY@1700 [facility] PRN Reason: Protocol Last Admin: 10/02/17 22:48 Dose: 4.5 mg Vital Signs - 8 hr 10/03/17 10/03/17 10/03/17 07:10 07:36 08:10 Temperature 100.1 F Pulse Rate 91 Respiratory 15 18 16 Rate Blood Pressure 140/70 (mmHg) O2 Sat by Pulse 93 Oximetry 10/03/17 09:32 Temperature 99 F Pulse Rate Respiratory Rate Blood Pressure (mmHg) O2 Sat by Pulse Oximetry Oxygen Devices in Use Now: None Appearance: Heaartly uin d, sleeping but arouses easily. Looks comfortable. In good spirits. Eyes: No Scleral Icterus Respiratory: Clear to Auscultation Cardiovascular: NL Sounds; No Murmurs; No JVD, RRR, No Edema, - Extremities: No Edema, No Clubbing, Cyanosis, - Skin: No Rash or Ulcers, No Nodules or Sclerosis, - Neurological: NL Sensation, - - Fair to poor verbal skills. She does not seem to know she just had an operation. Result Diagrams: 10/02/17 05:03 10/02/17 05:03 Additional Lab and Data: Lab Results 10/01/17 10/01/17 Range/Units 15:13 15:13 WBC 7.9 (3.5-10.8) 10^3/ul RBC 3.93 L (4.0-5.4) 10^6/ul Hgb 10.8 L (12.0-16.0) g/dl Hct 33 L (35-47) % MCV 84 (80-97) fL MCH 27 (27-31) pg MCHC 33 (31-36) g/dl RDW 15 (10.5-15) % Plt Count 146 L (150-450) 10^3/ul MPV 9 (7.4-10.4) um3 Neut % (Auto) 83.0 (38-83) % Lymph % (Auto) 6.0 L (25-47) % [place] % (Auto) 10.4 H (1-9) % Eos % (Auto) 0.2 (0-6) % Baso % (Auto) 0.4 (0-2) % Absolute Neuts (auto) 6.6 (1.5-7.7) 10^3/ul Absolute Lymphs (auto) 0.5 L (1.0-4.8) 10^3/ul Absolute Monos (auto) 0.8 (0-0.8) 10^3/ul Absolute Eos (auto) 0 (0-0.6) 10^3/ul Absolute Basos (auto) 0 (0-0.2) 10^3/ul Absolute Nucleated RBC 0 10^3/ul Nucleated RBC % 0 Sodium 135 (133-145) mmol/L Potassium 4.6 (3.5-5.0) mmol/L Chloride 102 (101-111) mmol/L Carbon Dioxide 27 (22-32) mmol/L Anion Gap 6 (2-11) mmol/L BUN 29 H (6-24) mg/dL Creatinine 1.75 H (0.51-0.95) mg/dL Est GFR ( Amer) 35.4 (>60) Est GFR (Non-Af Amer) 27.6 (>60) BUN/Creatinine Ratio 16.6 (8-20) Glucose 104 H (70-100) mg/dL Calcium 8.7 (8.6-10.3) mg/dL Magnesium 2.0 (1.9-2.7) mg/dL Total Bilirubin 0.80 (0.2-1.0) mg/dL AST 26 (13-39) U/L ALT 9 (7-52) U/L Alkaline Phosphatase 58 (34-104) U/L C-Reactive Protein 13.87 H (< 5.00) mg/L Total Protein 6.4 (6.4-8.9) g/dL Albumin 3.5 (3.2-5.2) g/dL Globulin 2.9 (2-4) g/dL Albumin/Globulin Ratio 1.2 (1-3) Microbiology and Other Data: Microbiology 10/01/17 21:20 Influenza Types A,B Antigen (ARIANE) - Final Nasal Specimen received for Influenza A/B Molecular testing Assess/Plan/Problems-Billing Assessment: - Patient Problems (1) Fracture of distal end of right femur Current Visit: Yes Status: Acute Code(s): S72.401A - UNSP FRACTURE OF LOWER END OF RIGHT FEMUR, INIT FOR CLOS FX SNOMED Code(s): 696637305 Comment: ORIF done 10/02. INR 1.25 2/9. (2) Atrial fibrillation Current Visit: Yes Status: Acute Code(s): I48.91 - UNSPECIFIED ATRIAL FIBRILLATION SNOMED Code(s): 89363315 Comment: Continue warfarin, carvedilol. (3) Influenza B Current Visit: Yes Status: Acute Code(s): J10.1 - FLU DUE TO OTH IDENT INFLUENZA VIRUS W OTH RESP MANIFEST SNOMED Code(s): 27055464 Comment: Complete oseltamivir course, dose adjusted for stage 3 CKD. (4) Dementia Current Visit: Yes Status: Acute Code(s): F03.90 - UNSPECIFIED DEMENTIA WITHOUT BEHAVIORAL DISTURBANCE SNOMED Code(s): 43916914 Comment: No behavior disturbances noted. Reduce mirtazapine dose, may be having a negative effect on her mental status.
[2017-10-03] MEDS: Warfarin TAB(*) 1 MG PO SCH (17:42)
[2017-10-03] MEDS ORDERED: Carvedilol TAB* 3.125 MG PO SCH (21:38)
[2017-10-03] MEDS: Acetaminophen TAB* 325 MG PO PRN (21:46)
[2017-10-03] MEDS: Atorvastatin* 20 MG TAB PO SCH (21:47)
[2017-10-03] MEDS: Carvedilol TAB* 3.125 MG PO SCH (21:57)
[2017-10-04] MEDS: Enoxaparin(*) 30 MG/0.3 ML SYR SUBCUT SCH (00:54)
--- NOTE | 2017-10-04 10:16 | PN ---
Progress Note - Progress Note Date of Service: 10/04/17 SOAP: Subjective: 86 y/o female with fall from wheelchair s/p ORIF R distal femur 10/02/2017. VSS, mild tachy at times. tmax 100 overnight. Patient demented, resting comfortably , no complaints. Objective: General- Well appearing, NAD, AO MSK- DF/PF 2+ b/l, PT 2+, negative homans sign. Surgical dressing taken down, robert intact, no drainage noted, no erythema. minimal ecchymosis. re- dressed. minimal induration anterior thigh. Vital Signs Temp 98.8 F 10/04/17 07:56 Pulse 94 10/04/17 07:56 Resp 18 10/04/17 07:56 BP 112/61 10/04/17 07:56 Pulse Ox 93 10/04/17 07:56 Intake & Output 10/03/17 10/04/17 10/04/17 18:59 06:59 18:59 Intake Total 930 460 Balance 930 460 Weight 78.925 kg Intake: IV Fluids 50 20 NS (0.9%) 50 20 IVPB 0 NS (0.9%) 0 Oral 880 440 Other: Estimated Void Medium Medium # Bowel Movements 0 0 # Voids 2 2 Assessment: Stable 86 y/o female with fall from wheelchair s/p ORIF R femur 10/02/2017. Plan: - DVT prophylaxis- lovenox, coumadin per hosp. - Continue PT/ OT - Per PT note, difficulty with PT as sleepy, medication changes per hosp, continue PT, TTWB - Follow up w Dr. Yaun within 2 weeks post-op. Sutures to be removed at post-op visit or at 2 weeks post-op - H&H stable - post-op IV ABX - completed. - Due to inability to move patient, dressing changes to be completed by nursing staff during bathing times. - OK to remove brace- use for transfers to decrease pain for patient. Active Medications Generic Name Dose Route Start Last Admin Trade Name Freq PRN Reason Stop Dose Admin Acetaminophen 650 mg 10/02/17 18:13 10/03/17 21:46 Tylenol Tab* PO 650 mg Q6H PRN Administration FEVER/PAIN Al Hydrox/Mg Hydrox/Simethicone 30 ml 10/01/17 17:19 Maalox Plus* PO Q6H PRN INDIGESTION Atorvastatin Calcium 20 mg 10/01/17 21:00 10/03/17 21:47 Lipitor* PO 20 mg BEDTIME [facility] Administration Carvedilol 3.125 mg 10/03/17 22:00 10/03/17 21:57 Coreg Tab* PO 3.125 mg 0900,2100 [facility] Administration Cholecalciferol 2,000 units 10/02/17 09:00 10/03/17 09:46 Vitamin D Tab* PO 2,000 units DAILY [facility] Administration Docusate Sodium 100 mg 10/01/17 17:24 Colace Cap* PO BID PRN CONGESTION Enoxaparin Sodium 30 mg 10/03/17 01:00 10/04/17 00:54 Lovenox(*) SUBCUT 30 mg Q24H [facility] Administration Ferrous Sulfate 325 mg 10/04/17 09:00 Ferrous Sulfate Tab* PO DAILY [facility] Furosemide 20 mg 10/02/17 09:00 10/03/17 09:46 Lasix Tab* PO 20 mg DAILY [facility] Administration Lactulose 30 ml 10/01/17 17:24 Lactulose* PO Q6HR PRN CONSTIPATION Mirtazapine 15 mg 10/03/17 14:35 Remeron Tab* PO DAILY [facility] Morphine Sulfate 2 mg 10/03/17 09:30 10/03/17 21:47 Morphine Inj (Syringe)* IV 2 mg Q2H PRN Administration PAIN - BREAKTHROUGH Oseltamivir Phosphate 30 mg 10/02/17 11:00 10/03/17 09:51 Tamiflu Susp 30 Mg Dose* PO 30 mg DAILY [facility] Administration Potassium Chloride 10 meq 10/02/17 09:00 10/03/17 09:45 Klor Con Er Tab* PO 10 meq DAILY [facility] Administration Senna 1 tab 10/01/17 17:24 Senokot Tab* PO DAILY PRN CONSTIPATION Warfarin Sodium 4.5 mg 10/02/17 17:00 10/03/17 17:42 Coumadin Tab(*) PO 4.5 mg DAILY@1700 [facility] Administration Protocol
[2017-10-04] MEDS: Ferrous Sulfate TAB* 325 MG PO SCH (10:18)
[2017-10-04] MEDS: Carvedilol TAB* 3.125 MG PO SCH ×2 (10:18→20:57)
[2017-10-04] MEDS: Mirtazapine TAB* 15 MG PO SCH (10:18)
[2017-10-04] MEDS: Oseltamivir SUSP 30 MG dose* 30 MG/5 ML ORAL.SYRIN PO SCH (10:18)
[2017-10-04] MEDS: Furosemide TAB* 20 MG PO SCH (10:18)
[2017-10-04] MEDS: Potassium Chlor TAB* 10 MEQ TAB.ER PO SCH (10:18)
[2017-10-04] MEDS: Cholecalciferol TAB* 1000 UNITS PO SCH (10:19)
--- NOTE | 2017-10-04 11:04 | PN ---
Subjective Date of Service: 10/04/17 Interval History: No c/o. Pt states she didn't eat breakfast because she wasn't hungry but her nurse states she ate a little. Objective Active Medications: Acetaminophen (Tylenol Tab*) 650 mg PO Q6H PRN PRN Reason: FEVER/PAIN Last Admin: 10/03/17 21:46 Dose: 650 mg Al Hydrox/Mg Hydrox/Simethicone (Maalox Plus*) 30 ml PO Q6H PRN PRN Reason: INDIGESTION Atorvastatin Calcium (Lipitor*) 20 mg PO BEDTIME [facility] Last Admin: 10/03/17 21:47 Dose: 20 mg Carvedilol (Coreg Tab*) 3.125 mg PO 0900,2100 [facility] Last Admin: 10/04/17 10:18 Dose: 3.125 mg Cholecalciferol (Vitamin D Tab*) 2,000 units PO DAILY [facility] Last Admin: 10/04/17 10:19 Dose: 2,000 units Docusate Sodium (Colace Cap*) 100 mg PO BID PRN PRN Reason: CONGESTION Enoxaparin Sodium (Lovenox(*)) 30 mg SUBCUT Q24H [facility] Last Admin: 10/04/17 00:54 Dose: 30 mg Ferrous Sulfate (Ferrous Sulfate Tab*) 325 mg PO DAILY [facility] Last Admin: 10/04/17 10:18 Dose: 325 mg Furosemide (Lasix Tab*) 20 mg PO DAILY [facility] Last Admin: 10/04/17 10:18 Dose: 20 mg Lactulose (Lactulose*) 30 ml PO Q6HR PRN PRN Reason: CONSTIPATION Mirtazapine (Remeron Tab*) 15 mg PO DAILY [facility] Last Admin: 10/04/17 10:18 Dose: 15 mg Morphine Sulfate (Morphine Inj (Syringe)*) 2 mg IV Q2H PRN PRN Reason: PAIN - BREAKTHROUGH Last Admin: 10/03/17 21:47 Dose: 2 mg Oseltamivir Phosphate (Tamiflu Susp 30 Mg Dose*) 30 mg PO DAILY [facility] Stop: 10/06/17 18:00 Last Admin: 10/04/17 10:18 Dose: 30 mg Potassium Chloride (Klor Con Er Tab*) 10 meq PO DAILY [facility] Last Admin: 10/04/17 10:18 Dose: 10 meq Senna (Senokot Tab*) 1 tab PO DAILY PRN PRN Reason: CONSTIPATION Warfarin Sodium (Coumadin Tab(*)) 4.5 mg PO DAILY@1700 [facility] PRN Reason: Protocol Last Admin: 10/03/17 17:42 Dose: 4.5 mg Vital Signs - 8 hr 10/04/17 10/04/17 03:46 07:56 Temperature 98.8 F Pulse Rate 94 Respiratory 18 Rate Blood Pressure 112/61 (mmHg) O2 Sat by Pulse 95 93 Oximetry Oxygen Devices in Use Now: None Appearance: Alert, in recliner chair with both legs elevated. R knee immobilizer in place. Eyes: No Scleral Icterus Respiratory: Symmetrical Chest Expansion and Respiratory Effort, Clear to Auscultation, Clear to Percussion Cardiovascular: No Edema, - - irreg Extremities: No Edema, No Clubbing, Cyanosis, - - R knee immobilizer in place. Skin: No Rash or Ulcers, No Nodules or Sclerosis, - Neurological: NL Sensation - Cooperative. HAUSER. Good verbal skills. Diminished memory. Result Diagrams: 10/02/17 05:03 10/02/17 05:03 Additional Lab and Data: Lab Results 10/01/17 10/01/17 Range/Units 15:13 15:13 WBC 7.9 (3.5-10.8) 10^3/ul RBC 3.93 L (4.0-5.4) 10^6/ul Hgb 10.8 L (12.0-16.0) g/dl Hct 33 L (35-47) % MCV 84 (80-97) fL MCH 27 (27-31) pg MCHC 33 (31-36) g/dl RDW 15 (10.5-15) % Plt Count 146 L (150-450) 10^3/ul MPV 9 (7.4-10.4) um3 Neut % (Auto) 83.0 (38-83) % Lymph % (Auto) 6.0 L (25-47) % [place] % (Auto) 10.4 H (1-9) % Eos % (Auto) 0.2 (0-6) % Baso % (Auto) 0.4 (0-2) % Absolute Neuts (auto) 6.6 (1.5-7.7) 10^3/ul Absolute Lymphs (auto) 0.5 L (1.0-4.8) 10^3/ul Absolute Monos (auto) 0.8 (0-0.8) 10^3/ul Absolute Eos (auto) 0 (0-0.6) 10^3/ul Absolute Basos (auto) 0 (0-0.2) 10^3/ul Absolute Nucleated RBC 0 10^3/ul Nucleated RBC % 0 Sodium 135 (133-145) mmol/L Potassium 4.6 (3.5-5.0) mmol/L Chloride 102 (101-111) mmol/L Carbon Dioxide 27 (22-32) mmol/L Anion Gap 6 (2-11) mmol/L BUN 29 H (6-24) mg/dL Creatinine 1.75 H (0.51-0.95) mg/dL Est GFR ( Amer) 35.4 (>60) Est GFR (Non-Af Amer) 27.6 (>60) BUN/Creatinine Ratio 16.6 (8-20) Glucose 104 H (70-100) mg/dL Calcium 8.7 (8.6-10.3) mg/dL Magnesium 2.0 (1.9-2.7) mg/dL Total Bilirubin 0.80 (0.2-1.0) mg/dL AST 26 (13-39) U/L ALT 9 (7-52) U/L Alkaline Phosphatase 58 (34-104) U/L C-Reactive Protein 13.87 H (< 5.00) mg/L Total Protein 6.4 (6.4-8.9) g/dL Albumin 3.5 (3.2-5.2) g/dL Globulin 2.9 (2-4) g/dL Albumin/Globulin Ratio 1.2 (1-3) Microbiology and Other Data: Microbiology 10/01/17 21:20 Influenza Types A,B Antigen (ARIANE) - Final Nasal Specimen received for Influenza A/B Molecular testing Assess/Plan/Problems-Billing Assessment: - Patient Problems (1) Fracture of distal end of right femur Current Visit: Yes Status: Acute Code(s): S72.401A - UNSP FRACTURE OF LOWER END OF RIGHT FEMUR, INIT FOR CLOS FX SNOMED Code(s): 113507905 Comment: ORIF done 10/02. INR 10/04 was 1.24. Extra 1.5 mg warfarin 2/10 and increase dose to 6 mg starting 10/05. (2) Atrial fibrillation Current Visit: Yes Status: Acute Code(s): I48.91 - UNSPECIFIED ATRIAL FIBRILLATION SNOMED Code(s): 16988137 Comment: Continue warfarin as above, carvedilol. (3) Influenza B Current Visit: Yes Status: Acute Code(s): J10.1 - FLU DUE TO OTH IDENT INFLUENZA VIRUS W OTH RESP MANIFEST SNOMED Code(s): 81272534 Comment: Complete oseltamivir course, dose adjusted for stage 3 CKD. (4) Dementia Current Visit: Yes Status: Acute Code(s): F03.90 - UNSPECIFIED DEMENTIA WITHOUT BEHAVIORAL DISTURBANCE SNOMED Code(s): 61649384 Comment: No behavior disturbances noted. Continue reduced mirtazapine dose, may be having a negative effect on her mental status. Consider further dose reduction soon.
[2017-10-04 13:24] LABS: INR 1.24 (0.77-1.02)
[2017-10-04] MEDS: Warfarin TAB(*) 1 MG PO SCH (17:12)
[2017-10-04] MEDS ORDERED: Warfarin TAB(*) 6 MG PO SCH (18:00)
[2017-10-04] MEDS ORDERED: Warfarin TAB(*) 3 MG PO ONE ×3 (18:15→20:00)
[2017-10-04] MEDS: Acetaminophen TAB* 325 MG PO PRN (20:56)
[2017-10-04] MEDS: Atorvastatin* 20 MG TAB PO SCH (20:57)
[2017-10-05] MEDS: Enoxaparin(*) 30 MG/0.3 ML SYR SUBCUT SCH (00:12)
--- NOTE | 2017-10-05 11:19 | PN ---
Subjective Date of Service: 10/05/17 Interval History: Has no complaints cough persists eating breakfast late Objective Active Medications: Acetaminophen (Tylenol Tab*) 650 mg PO Q6H PRN PRN Reason: FEVER/PAIN Last Admin: 10/04/17 20:56 Dose: 650 mg Al Hydrox/Mg Hydrox/Simethicone (Maalox Plus*) 30 ml PO Q6H PRN PRN Reason: INDIGESTION Atorvastatin Calcium (Lipitor*) 20 mg PO BEDTIME [facility] Last Admin: 10/04/17 20:57 Dose: 20 mg Carvedilol (Coreg Tab*) 3.125 mg PO 0900,2100 [facility] Last Admin: 10/04/17 20:57 Dose: Not Given Cholecalciferol (Vitamin D Tab*) 2,000 units PO DAILY [facility] Last Admin: 10/04/17 10:19 Dose: 2,000 units Docusate Sodium (Colace Cap*) 100 mg PO BID PRN PRN Reason: CONGESTION Enoxaparin Sodium (Lovenox(*)) 30 mg SUBCUT Q24H [facility] Last Admin: 10/05/17 00:12 Dose: 30 mg Ferrous Sulfate (Ferrous Sulfate Tab*) 325 mg PO DAILY [facility] Last Admin: 10/04/17 10:18 Dose: 325 mg Furosemide (Lasix Tab*) 20 mg PO DAILY [facility] Last Admin: 10/04/17 10:18 Dose: 20 mg Lactulose (Lactulose*) 30 ml PO Q6HR PRN PRN Reason: CONSTIPATION Mirtazapine (Remeron Tab*) 15 mg PO DAILY [facility] Last Admin: 10/04/17 10:18 Dose: 15 mg Morphine Sulfate (Morphine Inj (Syringe)*) 2 mg IV Q2H PRN PRN Reason: PAIN - BREAKTHROUGH Last Admin: 10/03/17 21:47 Dose: 2 mg Oseltamivir Phosphate (Tamiflu Susp 30 Mg Dose*) 30 mg PO DAILY [facility] Stop: 10/06/17 18:00 Last Admin: 10/04/17 10:18 Dose: 30 mg Potassium Chloride (Klor Con Er Tab*) 10 meq PO DAILY [facility] Last Admin: 10/04/17 10:18 Dose: 10 meq Senna (Senokot Tab*) 1 tab PO DAILY PRN PRN Reason: CONSTIPATION Warfarin Sodium (Coumadin Tab(*)) 6 mg PO DAILY@1700 [facility] PRN Reason: Protocol Vital Signs - 8 hr 10/05/17 10/05/17 10/05/17 03:15 03:48 07:53 Temperature 98.1 F 98.0 F Pulse Rate 91 100 Respiratory 18 18 Rate Blood Pressure 104/52 112/60 (mmHg) O2 Sat by Pulse 93 96 92 Oximetry 10/05/17 10/05/17 07:59 08:00 Temperature Pulse Rate Respiratory 20 Rate Blood Pressure (mmHg) O2 Sat by Pulse 93 Oximetry Oxygen Devices in Use Now: Nasal Cannula Appearance: stated age, NAD Eyes: No Scleral Icterus, PERRLA Ears/Nose/Mouth/Throat: NL Teeth, Lips, Gums, Clear Oropharnyx Neck: NL Appearance and Movements; NL JVP, Trachea Midline Respiratory: Symmetrical Chest Expansion and Respiratory Effort, Clear to Auscultation Cardiovascular: - - IRIR Abdominal: NL Sounds; No Tenderness; No Distention, No Hepatosplenomegaly Lymphatic: No Cervical Adenopathy Extremities: No Edema Skin: No Rash or Ulcers Neurological: - - AOx2 Result Diagrams: 10/02/17 05:03 10/02/17 05:03 Additional Lab and Data: Lab Results 10/01/17 10/01/17 Range/Units 15:13 15:13 WBC 7.9 (3.5-10.8) 10^3/ul RBC 3.93 L (4.0-5.4) 10^6/ul Hgb 10.8 L (12.0-16.0) g/dl Hct 33 L (35-47) % MCV 84 (80-97) fL MCH 27 (27-31) pg MCHC 33 (31-36) g/dl RDW 15 (10.5-15) % Plt Count 146 L (150-450) 10^3/ul MPV 9 (7.4-10.4) um3 Neut % (Auto) 83.0 (38-83) % Lymph % (Auto) 6.0 L (25-47) % [place] % (Auto) 10.4 H (1-9) % Eos % (Auto) 0.2 (0-6) % Baso % (Auto) 0.4 (0-2) % Absolute Neuts (auto) 6.6 (1.5-7.7) 10^3/ul Absolute Lymphs (auto) 0.5 L (1.0-4.8) 10^3/ul Absolute Monos (auto) 0.8 (0-0.8) 10^3/ul Absolute Eos (auto) 0 (0-0.6) 10^3/ul Absolute Basos (auto) 0 (0-0.2) 10^3/ul Absolute Nucleated RBC 0 10^3/ul Nucleated RBC % 0 Sodium 135 (133-145) mmol/L Potassium 4.6 (3.5-5.0) mmol/L Chloride 102 (101-111) mmol/L Carbon Dioxide 27 (22-32) mmol/L Anion Gap 6 (2-11) mmol/L BUN 29 H (6-24) mg/dL Creatinine 1.75 H (0.51-0.95) mg/dL Est GFR ( Amer) 35.4 (>60) Est GFR (Non-Af Amer) 27.6 (>60) BUN/Creatinine Ratio 16.6 (8-20) Glucose 104 H (70-100) mg/dL Calcium 8.7 (8.6-10.3) mg/dL Magnesium 2.0 (1.9-2.7) mg/dL Total Bilirubin 0.80 (0.2-1.0) mg/dL AST 26 (13-39) U/L ALT 9 (7-52) U/L Alkaline Phosphatase 58 (34-104) U/L C-Reactive Protein 13.87 H (< 5.00) mg/L Total Protein 6.4 (6.4-8.9) g/dL Albumin 3.5 (3.2-5.2) g/dL Globulin 2.9 (2-4) g/dL Albumin/Globulin Ratio 1.2 (1-3) Microbiology and Other Data: Microbiology 10/01/17 21:20 Influenza Types A,B Antigen (ARIANE) - Final Nasal Specimen received for Influenza A/B Molecular testing Assess/Plan/Problems-Billing Assessment: 86 yo F found with flu B s/p fall/Right femur fracture s/p ORIF - Patient Problems (1) Fracture of distal end of right femur Comment: ORIF done 10/02. INR 10/04 was 1.24. Extra 1.5 mg warfarin 10/04 and increase dose to 6 mg starting 10/05. (2) Influenza B Comment: oseltamivir dose adjusted for stage 3 CKD. last dose 10/06 (3) Atrial fibrillation Comment: carvedilol c/w coumadin check INR (4) Dementia Comment: No behavior disturbances noted. Continue reduced mirtazapine dose, (5) DVT prophylaxis Comment: coumadin check INR
[2017-10-05] MEDS: Carvedilol TAB* 3.125 MG PO SCH ×2 (11:38→20:57)
[2017-10-05] MEDS: Cholecalciferol TAB* 1000 UNITS PO SCH (11:38)
[2017-10-05] MEDS: Ferrous Sulfate TAB* 325 MG PO SCH (11:38)
[2017-10-05] MEDS: Furosemide TAB* 20 MG PO SCH (11:38)
[2017-10-05] MEDS: Potassium Chlor TAB* 10 MEQ TAB.ER PO SCH (11:39)
[2017-10-05] MEDS: Oseltamivir SUSP 30 MG dose* 30 MG/5 ML ORAL.SYRIN PO SCH (11:39)
[2017-10-05] MEDS: Mirtazapine TAB* 15 MG PO SCH (11:39)
--- NOTE | 2017-10-05 12:12 | PN ---
Progress Note - Progress Note Date of Service: 10/05/17 SOAP: Subjective: 86 y/o female with fall from wheelchair s/p ORIF R distal femur 10/02/2017. Continues to work with PT, however poor effort, needs leny lift. patient with no complaints, questions Objective: General- resting comfortably in bed, sleeping, dementia present. MSK- [place] intact, incision c/d/i, + DF/PF L LE, sensation intact, cries in pain with any ROM of L knee, neg homans. Assessment: 86 y/o female with fall from wheelchair s/p ORIF R distal femur 10/02/2017. Vital Signs Temp 98.0 F 10/05/17 07:53 Pulse 100 10/05/17 07:53 Resp 20 10/05/17 07:59 BP 112/60 10/05/17 07:53 Pulse Ox 93 10/05/17 08:00 Intake & Output 10/04/17 10/05/17 10/05/17 18:59 06:59 18:59 Intake Total 860 240 360 Balance 860 240 360 Intake: IV Fluids 0 NS (0.9%) 0 Oral 860 240 360 Other: Estimated Void Medium Small # Bowel Movements 0 # Voids 3 3 Plan: - DVT prophylaxis- lovenox, coumadin per hosp. - Continue PT/ OT- poor effort, leny lift needed. rehab - Follow up with Dr. Yuan 10-14 days post-op . [place] to be removed around 14 days post-op - H&H stable. - post-op IV ABX - completed. Active Medications Generic Name Dose Route Start Last Admin Trade Name Anila PRN Reason Stop Dose Admin Acetaminophen 650 mg 10/02/17 18:13 10/04/17 20:56 Tylenol Tab* PO 650 mg Q6H PRN Administration FEVER/PAIN Al Hydrox/Mg Hydrox/Simethicone 30 ml 10/01/17 17:19 Maalox Plus* PO Q6H PRN INDIGESTION Atorvastatin Calcium 20 mg 10/01/17 21:00 10/04/17 20:57 Lipitor* PO 20 mg BEDTIME [facility] Administration Carvedilol 3.125 mg 10/03/17 22:00 10/05/17 11:38 Coreg Tab* PO Not Given 0900,2100 [facility] Cholecalciferol 2,000 units 10/02/17 09:00 10/05/17 11:38 Vitamin D Tab* PO 2,000 units DAILY [facility] Administration Docusate Sodium 100 mg 10/01/17 17:24 Colace Cap* PO BID PRN CONGESTION Enoxaparin Sodium 30 mg 10/03/17 01:00 10/05/17 00:12 Lovenox(*) SUBCUT 30 mg Q24H [facility] Administration Ferrous Sulfate 325 mg 10/04/17 09:00 10/05/17 11:38 Ferrous Sulfate Tab* PO 325 mg DAILY [facility] Administration Furosemide 20 mg 10/02/17 09:00 10/05/17 11:38 Lasix Tab* PO 20 mg DAILY [facility] Administration Lactulose 30 ml 10/01/17 17:24 Lactulose* PO Q6HR PRN CONSTIPATION Mirtazapine 15 mg 10/03/17 14:35 10/05/17 11:39 Remeron Tab* PO 15 mg DAILY [facility] Administration Morphine Sulfate 2 mg 10/03/17 09:30 10/03/17 21:47 Morphine Inj (Syringe)* IV 2 mg Q2H PRN Administration PAIN - BREAKTHROUGH Oseltamivir Phosphate 30 mg 10/02/17 11:00 10/05/17 11:39 Tamiflu Susp 30 Mg Dose* PO 10/06/17 18:00 30 mg DAILY [facility] Administration Potassium Chloride 10 meq 10/02/17 09:00 10/05/17 11:39 Klor Con Er Tab* PO 10 meq DAILY [facility] Administration Senna 1 tab 10/01/17 17:24 Senokot Tab* PO DAILY PRN CONSTIPATION Warfarin Sodium 6 mg 10/05/17 17:00 Coumadin Tab(*) PO DAILY@1700 [facility] Protocol
[2017-10-05 12:32] LABS: INR 1.57 (0.77-1.02)
[2017-10-05] MEDS: Warfarin TAB(*) 6 MG PO SCH (18:09)
[2017-10-05] MEDS: Docusate CAP* 100 MG PO PRN (20:47)
[2017-10-05] MEDS: Atorvastatin* 20 MG TAB PO SCH (20:56)
[2017-10-05] MEDS: Senna TAB PO PRN (20:57)
[2017-10-06] MEDS: Enoxaparin(*) 30 MG/0.3 ML SYR SUBCUT SCH (01:00)
[2017-10-06 06:20] LABS: INR 2.15 (0.77-1.02)
[2017-10-06] MEDS: Ferrous Sulfate TAB* 325 MG PO SCH (08:50)
[2017-10-06] MEDS: Cholecalciferol TAB* 1000 UNITS PO SCH (08:50)
[2017-10-06] MEDS: Furosemide TAB* 20 MG PO SCH (08:50)
[2017-10-06] MEDS: Potassium Chlor TAB* 10 MEQ TAB.ER PO SCH (08:50)
[2017-10-06] MEDS: Carvedilol TAB* 3.125 MG PO SCH ×2 (08:50→21:05)
[2017-10-06] MEDS: Mirtazapine TAB* 15 MG PO SCH (08:50)
[2017-10-06] MEDS: Oseltamivir SUSP 30 MG dose* 30 MG/5 ML ORAL.SYRIN PO SCH (08:52)
[2017-10-06] MEDS: Docusate CAP* 100 MG PO PRN ×2 (09:17→16:06)
--- NOTE | 2017-10-06 10:20 | DS ---
CC: [facility] * DISCHARGE SUMMARY: DATE OF ADMISSION: 10/01/17 DATE OF DISCHARGE: 10/06/17 PRIMARY CARE PROVIDER: None. DISPOSITION ON DISCHARGE: [facility]. PRIMARY DIAGNOSIS: Right distal femur fracture, status post open reduction and internal fixation. SECONDARY DIAGNOSES: Include: 1. Influenza B. 2. Atrial fibrillation, on Coumadin. 3. Dementia. 4. History of cerebrovascular accident. 5. Hypertension. 6. Hyperlipidemia. 7. History of congestive heart failure, compensated. 8. Chronic kidney disease, stage 3. MEDICATIONS ON DISCHARGE: Include: 1. Senna 1 tab daily as needed. 2. Lactulose 30 mL every 6 hours as needed. 3. Docusate 100 mg twice daily as needed. 4. Ferrous sulfate 325 mg daily. 5. Coumadin 4.5 mg daily. 6. Calcium carbonate with vitamin D3, one tab twice daily. 7. Acetaminophen 1000 mg 3 times daily as needed for pain. 8. Simvastatin 40 mg at bedtime. 9. Potassium chloride 10 mEq daily. 10. Mirtazapine 30 mg daily. 11. Furosemide 20 mg daily. 12. Oxycodone 5 mg every 4 hours as needed for pain. 13. Carvedilol 3.125 mg twice daily. Please note this was decreased from 6.25 mg twice daily. PERTINENT LABORATORY DATA: INR on the day of discharge was 2.15. Creatinine on 10/02/17 was 1.8. PROCEDURE PERFORMED DURING HOSPITAL STAY: Right distal femur ORIF, performed by Dr. Yuan on 10/02/17. HISTORY OF PRESENT ILLNESS AND HOSPITAL COURSE: This is an [id number], past medical history as outlined in the history of present illness on day of admission, including dementia, presented to the hospital with weakness, status post fall, found with influenza B as well as a femoral fracture as indicated above. She had repair without complication by Dr. Yuan on the , as indicated above. She completed a course of oseltamivir for influenza B, at a reduced dose based on her kidney function, on the day of discharge. There was no complications during the course of the hospital stay. The patient dose have advanced dementia and is unable to relay her needs appropriately. DISCHARGE INSTRUCTIONS: At followup, please; 1. INR check on 10/09/17, discharge value is 2.15. She did receive an increased dose of 6 mg on 10/05/17, which was reduced back to 4.5 mg, which is her home dose, on the day of discharge. 2. Continue physical therapy for return of function of right extremity status post surgery. 3. No other specific labs or vitals that need followup. TIME SPENT: Greater than 30 minutes were spent on the discharge of this patient , greater than half was spent [id number] with the patient. [id number]/[facility] #: [id number] EFREN
--- NOTE | 2017-10-06 12:28 | PN ---
Progress Note - Progress Note Date of Service: 10/06/17 SOAP: Subjective: []Patient seen at bedside. Her pain is well controlled. She denies CP, SOB, nausea or dizziness. Objective: []General- Laying comfortably in bed. Calm and cooperative. RLE: Dressing changed. Incision CDI without surrounding erythema. Scant serosanguineous discharge on most distal dressing. DF/PF intact. 2+ DP pulse. Sensation intact distally. BL LE: Calves supple and nontender without erythema, edema or palpable cords. Vital Signs Temp 99.0 F 10/06/17 07:45 Pulse 79 10/06/17 07:45 Resp 18 10/06/17 09:05 BP 106/55 10/06/17 07:45 Pulse Ox 91 10/06/17 07:45 Intake & Output 10/05/17 10/06/17 10/06/17 18:59 06:59 18:59 Intake Total 420 240 Balance 420 240 Intake: Oral 420 240 Other: Estimated Void Large Medium # Bowel Movements 0 0 # Voids 3 2 Laboratory Last Values WBC 8.0 10^3/ul (3.5-10.8) 10/02/17 05:03 RBC 3.55 10^6/ul (4.0-5.4) L 10/02/17 05:03 Hgb 9.9 g/dl (12.0-16.0) L 10/02/17 05:03 Hct 30 % (35-47) L 10/02/17 05:03 MCV 84 fL (80-97) 10/02/17 05:03 MCH 28 pg (27-31) 10/02/17 05:03 MCHC 33 g/dl (31-36) 10/02/17 05:03 RDW 15 % (10.5-15) 10/02/17 05:03 Plt Count 131 10^3/ul (150-450) L 10/02/17 05:03 MPV 9 um3 (7.4-10.4) 10/02/17 05:03 Neut % (Auto) 74.2 % (38-83) 10/02/17 05:03 Lymph % (Auto) 9.7 % (25-47) L 10/02/17 05:03 [place] % (Auto) 15.5 % (1-9) H 10/02/17 05:03 Eos % (Auto) 0 % (0-6) 10/02/17 05:03 Baso % (Auto) 0.6 % (0-2) 10/02/17 05:03 Absolute Neuts (auto) 6.0 10^3/ul (1.5-7.7) 10/02/17 05:03 Absolute Lymphs (auto) 0.8 10^3/ul (1.0-4.8) L 10/02/17 05:03 Absolute Monos (auto) 1.2 10^3/ul (0-0.8) H 10/02/17 05:03 Absolute Eos (auto) 0 10^3/ul (0-0.6) 10/02/17 05:03 Absolute Basos (auto) 0 10^3/ul (0-0.2) 10/02/17 05:03 Absolute Nucleated RBC 0 10^3/ul 10/02/17 05:03 Nucleated RBC % 0 10/02/17 05:03 INR (Anticoag Therapy) 2.15 (0.77-1.02) H 10/06/17 05:23 APTT 29.7 seconds (26.0-36.3) 10/02/17 05:03 Sodium 136 mmol/L (133-145) 10/02/17 05:03 Potassium 4.0 mmol/L (3.5-5.0) 10/02/17 05:03 Chloride 104 mmol/L (101-111) 10/02/17 05:03 Carbon Dioxide 24 mmol/L (22-32) 10/02/17 05:03 Anion Gap 8 mmol/L (2-11) 10/02/17 05:03 BUN 35 mg/dL (6-24) H 10/02/17 05:03 Creatinine 1.81 mg/dL (0.51-0.95) H 10/02/17 05:03 Est GFR ( Amer) 34.1 (>60) 10/02/17 05:03 Est GFR (Non-Af Amer) 26.5 (>60) 10/02/17 05:03 BUN/Creatinine Ratio 19.3 (8-20) 10/02/17 05:03 Glucose 101 mg/dL (70-100) H 10/02/17 05:03 Calcium 8.6 mg/dL (8.6-10.3) 10/02/17 05:03 Magnesium 2.0 mg/dL (1.9-2.7) 10/01/17 15:13 Total Bilirubin 0.80 mg/dL (0.2-1.0) 10/01/17 15:13 AST 26 U/L (13-39) 10/01/17 15:13 ALT 9 U/L (7-52) 10/01/17 15:13 Alkaline Phosphatase 58 U/L (34-104) 10/01/17 15:13 C-Reactive Protein 13.87 mg/L (< 5.00) H 10/01/17 15:13 Total Protein 6.4 g/dL (6.4-8.9) 10/01/17 15:13 Albumin 3.5 g/dL (3.2-5.2) 10/01/17 15:13 Globulin 2.9 g/dL (2-4) 10/01/17 15:13 Albumin/Globulin Ratio 1.2 (1-3) 10/01/17 15:13 Influenza A (Rapid) Negative (Negative) 10/01/17 22:33 Influenza B (Rapid) Positive (Negative) H 10/01/17 22:33 Assessment: 86 y/o female with fall from wheelchair s/p ORIF R distal femur 10/02/2017. Influenza B Plan: []TDWB ROM as tolerated D/C to [facility] mic F/U Dr Yuan 10-14 days post-op Coumadin per medicine
[2017-10-06] MEDS: Senna TAB PO PRN (16:06)
[2017-10-06] MEDS: Warfarin TAB(*) 6 MG PO SCH (16:06)
--- NOTE | 2017-10-06 19:00 | PN ---
Subjective Date of Service: 10/06/17 Interval History: Unable to make needs known Objective Active Medications: Acetaminophen (Tylenol Tab*) 650 mg PO Q6H PRN PRN Reason: FEVER/PAIN Last Admin: 10/04/17 20:56 Dose: 650 mg Al Hydrox/Mg Hydrox/Simethicone (Maalox Plus*) 30 ml PO Q6H PRN PRN Reason: INDIGESTION Atorvastatin Calcium (Lipitor*) 20 mg PO BEDTIME [facility] Last Admin: 10/05/17 20:56 Dose: 20 mg Carvedilol (Coreg Tab*) 3.125 mg PO 0900,2100 [facility] Last Admin: 10/06/17 08:50 Dose: 3.125 mg Cholecalciferol (Vitamin D Tab*) 2,000 units PO DAILY [facility] Last Admin: 10/06/17 08:50 Dose: 2,000 units Docusate Sodium (Colace Cap*) 100 mg PO BID PRN PRN Reason: CONGESTION Last Admin: 10/06/17 16:06 Dose: 100 mg Enoxaparin Sodium (Lovenox(*)) 30 mg SUBCUT Q24H [facility] Last Admin: 10/06/17 01:00 Dose: 30 mg Ferrous Sulfate (Ferrous Sulfate Tab*) 325 mg PO DAILY [facility] Last Admin: 10/06/17 08:50 Dose: 325 mg Furosemide (Lasix Tab*) 20 mg PO DAILY [facility] Last Admin: 10/06/17 08:50 Dose: 20 mg Lactulose (Lactulose*) 30 ml PO Q6HR PRN PRN Reason: CONSTIPATION Last Admin: 10/06/17 16:07 Dose: 30 ml Mirtazapine (Remeron Tab*) 15 mg PO DAILY [facility] Last Admin: 10/06/17 08:50 Dose: 15 mg Morphine Sulfate (Morphine Inj (Syringe)*) 2 mg IV Q2H PRN PRN Reason: PAIN - BREAKTHROUGH Last Admin: 10/03/17 21:47 Dose: 2 mg Potassium Chloride (Klor Con Er Tab*) 10 meq PO DAILY [facility] Last Admin: 10/06/17 08:50 Dose: 10 meq Senna (Senokot Tab*) 1 tab PO DAILY PRN PRN Reason: CONSTIPATION Last Admin: 10/06/17 16:06 Dose: 1 tab Warfarin Sodium (Coumadin Tab(*)) 6 mg PO DAILY@1700 [facility] PRN Reason: Protocol Last Admin: 10/06/17 16:06 Dose: 6 mg Vital Signs - 8 hr 10/06/17 10/06/17 11:40 15:55 Temperature 98.7 F 98.3 F Pulse Rate 82 75 Respiratory 18 16 Rate Blood Pressure 104/72 98/69 (mmHg) O2 Sat by Pulse 99 95 Oximetry Oxygen Devices in Use Now: None Appearance: NAD Eyes: No Scleral Icterus Ears/Nose/Mouth/Throat: Clear Oropharnyx Neck: NL Appearance and Movements; NL JVP Respiratory: Symmetrical Chest Expansion and Respiratory Effort Cardiovascular: RRR Abdominal: NL Sounds; No Tenderness; No Distention, No Hepatosplenomegaly Extremities: No Edema Skin: No Rash or Ulcers Neurological: - - AOx1 Result Diagrams: 10/02/17 05:03 10/02/17 05:03 Additional Lab and Data: Lab Results 10/01/17 10/01/17 Range/Units 15:13 15:13 WBC 7.9 (3.5-10.8) 10^3/ul RBC 3.93 L (4.0-5.4) 10^6/ul Hgb 10.8 L (12.0-16.0) g/dl Hct 33 L (35-47) % MCV 84 (80-97) fL MCH 27 (27-31) pg MCHC 33 (31-36) g/dl RDW 15 (10.5-15) % Plt Count 146 L (150-450) 10^3/ul MPV 9 (7.4-10.4) um3 Neut % (Auto) 83.0 (38-83) % Lymph % (Auto) 6.0 L (25-47) % [place] % (Auto) 10.4 H (1-9) % Eos % (Auto) 0.2 (0-6) % Baso % (Auto) 0.4 (0-2) % Absolute Neuts (auto) 6.6 (1.5-7.7) 10^3/ul Absolute Lymphs (auto) 0.5 L (1.0-4.8) 10^3/ul Absolute Monos (auto) 0.8 (0-0.8) 10^3/ul Absolute Eos (auto) 0 (0-0.6) 10^3/ul Absolute Basos (auto) 0 (0-0.2) 10^3/ul Absolute Nucleated RBC 0 10^3/ul Nucleated RBC % 0 Sodium 135 (133-145) mmol/L Potassium 4.6 (3.5-5.0) mmol/L Chloride 102 (101-111) mmol/L Carbon Dioxide 27 (22-32) mmol/L Anion Gap 6 (2-11) mmol/L BUN 29 H (6-24) mg/dL Creatinine 1.75 H (0.51-0.95) mg/dL Est GFR ( Amer) 35.4 (>60) Est GFR (Non-Af Amer) 27.6 (>60) BUN/Creatinine Ratio 16.6 (8-20) Glucose 104 H (70-100) mg/dL Calcium 8.7 (8.6-10.3) mg/dL Magnesium 2.0 (1.9-2.7) mg/dL Total Bilirubin 0.80 (0.2-1.0) mg/dL AST 26 (13-39) U/L ALT 9 (7-52) U/L Alkaline Phosphatase 58 (34-104) U/L C-Reactive Protein 13.87 H (< 5.00) mg/L Total Protein 6.4 (6.4-8.9) g/dL Albumin 3.5 (3.2-5.2) g/dL Globulin 2.9 (2-4) g/dL Albumin/Globulin Ratio 1.2 (1-3) Microbiology and Other Data: Microbiology 10/01/17 21:20 Influenza Types A,B Antigen (ARIANE) - Final Nasal Specimen received for Influenza A/B Molecular testing Assess/Plan/Problems-Billing Assessment: 86 yo F found with flu B s/p fall/Right femur fracture s/p ORIF - Patient Problems (1) Fracture of distal end of right femur Comment: ORIF done 10/02. INR 10/04 was 1.24. Extra 1.5 mg warfarin 10/04 and increase dose to 6 mg starting 10/05. (2) Influenza B Comment: oseltamivir dose adjusted for stage 3 CKD. last dose 10/06 (3) Atrial fibrillation Comment: carvedilol c/w coumadin (4) Dementia Comment: No behavior disturbances noted. Continue reduced mirtazapine dose, (5) DVT prophylaxis Comment: coumadin Status and Disposition: Pending insurance acceptance
[2017-10-06] MEDS: Atorvastatin* 20 MG TAB PO SCH (21:05)
[2017-10-07] MEDS: Enoxaparin(*) 30 MG/0.3 ML SYR SUBCUT SCH (00:55)
[2017-10-07] MEDS: Acetaminophen TAB* 325 MG PO PRN (01:22)
[2017-10-07] MEDS: Mirtazapine TAB* 15 MG PO SCH (09:13)
[2017-10-07] MEDS: Furosemide TAB* 20 MG PO SCH (09:13)
[2017-10-07] MEDS: Cholecalciferol TAB* 1000 UNITS PO SCH (09:13)
[2017-10-07] MEDS: Ferrous Sulfate TAB* 325 MG PO SCH (09:13)
[2017-10-07] MEDS: Carvedilol TAB* 3.125 MG PO SCH (09:13)
[2017-10-07] MEDS: Potassium Chlor TAB* 10 MEQ TAB.ER PO SCH (09:13)
[2017-10-07 09:28] VITALS: BP 104/72
--- NOTE | 2017-10-07 09:57 | DCNOTE ---
Subjective Date of Service: 10/07/17 Interval History: Discharge Summary Patient was prepared to be discharged yesterday but insurance wanted to review case with this author over the telephone. Pt will now go to [facility] emergency department under [facility] care and not [facility]. Pt was seen and examined today. She is AOX0 otherwise no changes. Her discharge summary from yesterday remains current with no changes to plan of care, history, follow up or medications. Objective Active Medications: Acetaminophen (Tylenol Tab*) 650 mg PO Q6H PRN PRN Reason: FEVER/PAIN Last Admin: 10/07/17 01:22 Dose: 650 mg Al Hydrox/Mg Hydrox/Simethicone (Maalox Plus*) 30 ml PO Q6H PRN PRN Reason: INDIGESTION Atorvastatin Calcium (Lipitor*) 20 mg PO BEDTIME [facility] Last Admin: 10/06/17 21:05 Dose: 20 mg Carvedilol (Coreg Tab*) 3.125 mg PO 0900,2100 [facility] Last Admin: 10/07/17 09:13 Dose: 3.125 mg Cholecalciferol (Vitamin D Tab*) 2,000 units PO DAILY [facility] Last Admin: 10/07/17 09:13 Dose: 2,000 units Docusate Sodium (Colace Cap*) 100 mg PO BID PRN PRN Reason: CONGESTION Last Admin: 10/06/17 16:06 Dose: 100 mg Enoxaparin Sodium (Lovenox(*)) 30 mg SUBCUT Q24H [facility] Last Admin: 10/07/17 00:55 Dose: 30 mg Ferrous Sulfate (Ferrous Sulfate Tab*) 325 mg PO DAILY [facility] Last Admin: 10/07/17 09:13 Dose: 325 mg Furosemide (Lasix Tab*) 20 mg PO DAILY [facility] Last Admin: 10/07/17 09:13 Dose: 20 mg Lactulose (Lactulose*) 30 ml PO Q6HR PRN PRN Reason: CONSTIPATION Last Admin: 10/06/17 16:07 Dose: 30 ml Mirtazapine (Remeron Tab*) 15 mg PO DAILY [facility] Last Admin: 10/07/17 09:13 Dose: 15 mg Morphine Sulfate (Morphine Inj (Syringe)*) 2 mg IV Q2H PRN PRN Reason: PAIN - BREAKTHROUGH Last Admin: 10/03/17 21:47 Dose: 2 mg Potassium Chloride (Klor Con Er Tab*) 10 meq PO DAILY [facility] Last Admin: 10/07/17 09:13 Dose: 10 meq Senna (Senokot Tab*) 1 tab PO DAILY PRN PRN Reason: CONSTIPATION Last Admin: 10/06/17 16:06 Dose: 1 tab Warfarin Sodium (Coumadin Tab(*)) 6 mg PO DAILY@1700 TATUM PRN Reason: Protocol Last Admin: 10/06/17 16:06 Dose: 6 mg Vital Signs - 8 hr 10/07/17 10/07/17 10/07/17 03:21 07:29 08:02 Temperature 98.2 F Pulse Rate 82 78 Respiratory 18 16 Rate Blood Pressure 109/59 89/54 (mmHg) O2 Sat by Pulse 99 99 98 Oximetry 10/07/17 10/07/17 08:15 09:19 Temperature 98.1 F Pulse Rate Respiratory 18 Rate Blood Pressure 104/72 (mmHg) O2 Sat by Pulse Oximetry Oxygen Devices in Use Now: None Result Diagrams: 10/02/17 05:03 10/02/17 05:03 Additional Lab and Data: Lab Results 10/01/17 10/01/17 Range/Units 15:13 15:13 WBC 7.9 (3.5-10.8) 10^3/ul RBC 3.93 L (4.0-5.4) 10^6/ul Hgb 10.8 L (12.0-16.0) g/dl Hct 33 L (35-47) % MCV 84 (80-97) fL MCH 27 (27-31) pg MCHC 33 (31-36) g/dl RDW 15 (10.5-15) % Plt Count 146 L (150-450) 10^3/ul MPV 9 (7.4-10.4) um3 Neut % (Auto) 83.0 (38-83) % Lymph % (Auto) 6.0 L (25-47) % [place] % (Auto) 10.4 H (1-9) % Eos % (Auto) 0.2 (0-6) % Baso % (Auto) 0.4 (0-2) % Absolute Neuts (auto) 6.6 (1.5-7.7) 10^3/ul Absolute Lymphs (auto) 0.5 L (1.0-4.8) 10^3/ul Absolute Monos (auto) 0.8 (0-0.8) 10^3/ul Absolute Eos (auto) 0 (0-0.6) 10^3/ul Absolute Basos (auto) 0 (0-0.2) 10^3/ul Absolute Nucleated RBC 0 10^3/ul Nucleated RBC % 0 Sodium 135 (133-145) mmol/L Potassium 4.6 (3.5-5.0) mmol/L Chloride 102 (101-111) mmol/L Carbon Dioxide 27 (22-32) mmol/L Anion Gap 6 (2-11) mmol/L BUN 29 H (6-24) mg/dL Creatinine 1.75 H (0.51-0.95) mg/dL Est GFR ( Amer) 35.4 (>60) Est GFR (Non-Af Amer) 27.6 (>60) BUN/Creatinine Ratio 16.6 (8-20) Glucose 104 H (70-100) mg/dL Calcium 8.7 (8.6-10.3) mg/dL Magnesium 2.0 (1.9-2.7) mg/dL Total Bilirubin 0.80 (0.2-1.0) mg/dL AST 26 (13-39) U/L ALT 9 (7-52) U/L Alkaline Phosphatase 58 (34-104) U/L C-Reactive Protein 13.87 H (< 5.00) mg/L Total Protein 6.4 (6.4-8.9) g/dL Albumin 3.5 (3.2-5.2) g/dL Globulin 2.9 (2-4) g/dL Albumin/Globulin Ratio 1.2 (1-3) Microbiology and Other Data: Microbiology 10/01/17 21:20 Influenza Types A,B Antigen (ARIANE) - Final Nasal Specimen received for Influenza A/B Molecular testing Assess/Plan/Problems-Billing Assessment: 86 yo F found with flu B s/p fall/Right femur fracture s/p ORIF - Patient Problems (1) Fracture of distal end of right femur Comment: ORIF done 10/02. INR 10/04 was 1.24. Extra 1.5 mg warfarin 10/04 and increase dose to 6 mg starting 10/05. (2) Influenza B Comment: oseltamivir dose adjusted for stage 3 CKD. last dose 10/06 (3) Atrial fibrillation Comment: carvedilol c/w coumadin (4) Dementia Comment: No behavior disturbances noted. Continue reduced mirtazapine dose, (5) DVT prophylaxis Comment: coumadin Status and Disposition: Pending insurance acceptance
--- NOTE | 2017-10-07 10:41 | PN ---
Progress Note - Progress Note Date of Service: 10/07/17 SOAP: Subjective: []Patient seen at bedside. She is cooperative and denies any complaints or RLE. Objective: []General- Laying comfortably in bed. Calm and cooperative. RLE: Dressing changed, tolerated well by patient. Incision CDI without surrounding erythema. Scant serosanguineous discharge on distal dressing. DF/PF intact. 2+ DP pulse. Sensation intact distally. BL LE: Calves supple and nontender without erythema, edema or palpable cords. Vital Signs Temp 98.1 F 10/07/17 08:15 Pulse 78 10/07/17 08:02 Resp 18 10/07/17 09:19 BP 104/72 10/07/17 08:15 Pulse Ox 98 10/07/17 08:02 Intake & Output 10/06/17 10/07/17 10/07/17 18:59 06:59 18:59 Intake Total 420 400 360 Balance 420 400 360 Intake: Oral 420 400 360 Other: Estimated Void Large Medium # Bowel Movements 1 Estimated Stool Amount Medium # Voids 1 1 Laboratory Last Values WBC 8.0 10^3/ul (3.5-10.8) 10/02/17 05:03 RBC 3.55 10^6/ul (4.0-5.4) L 10/02/17 05:03 Hgb 9.9 g/dl (12.0-16.0) L 10/02/17 05:03 Hct 30 % (35-47) L 10/02/17 05:03 MCV 84 fL (80-97) 10/02/17 05:03 MCH 28 pg (27-31) 10/02/17 05:03 MCHC 33 g/dl (31-36) 10/02/17 05:03 RDW 15 % (10.5-15) 10/02/17 05:03 Plt Count 131 10^3/ul (150-450) L 10/02/17 05:03 MPV 9 um3 (7.4-10.4) 10/02/17 05:03 Neut % (Auto) 74.2 % (38-83) 10/02/17 05:03 Lymph % (Auto) 9.7 % (25-47) L 10/02/17 05:03 [place] % (Auto) 15.5 % (1-9) H 10/02/17 05:03 Eos % (Auto) 0 % (0-6) 10/02/17 05:03 Baso % (Auto) 0.6 % (0-2) 10/02/17 05:03 Absolute Neuts (auto) 6.0 10^3/ul (1.5-7.7) 10/02/17 05:03 Absolute Lymphs (auto) 0.8 10^3/ul (1.0-4.8) L 10/02/17 05:03 Absolute Monos (auto) 1.2 10^3/ul (0-0.8) H 10/02/17 05:03 Absolute Eos (auto) 0 10^3/ul (0-0.6) 10/02/17 05:03 Absolute Basos (auto) 0 10^3/ul (0-0.2) 10/02/17 05:03 Absolute Nucleated RBC 0 10^3/ul 10/02/17 05:03 Nucleated RBC % 0 10/02/17 05:03 INR (Anticoag Therapy) 2.15 (0.77-1.02) H 10/06/17 05:23 APTT 29.7 seconds (26.0-36.3) 10/02/17 05:03 Sodium 136 mmol/L (133-145) 10/02/17 05:03 Potassium 4.0 mmol/L (3.5-5.0) 10/02/17 05:03 Chloride 104 mmol/L (101-111) 10/02/17 05:03 Carbon Dioxide 24 mmol/L (22-32) 10/02/17 05:03 Anion Gap 8 mmol/L (2-11) 10/02/17 05:03 BUN 35 mg/dL (6-24) H 10/02/17 05:03 Creatinine 1.81 mg/dL (0.51-0.95) H 10/02/17 05:03 Est GFR ( Amer) 34.1 (>60) 10/02/17 05:03 Est GFR (Non-Af Amer) 26.5 (>60) 10/02/17 05:03 BUN/Creatinine Ratio 19.3 (8-20) 10/02/17 05:03 Glucose 101 mg/dL (70-100) H 10/02/17 05:03 Calcium 8.6 mg/dL (8.6-10.3) 10/02/17 05:03 Magnesium 2.0 mg/dL (1.9-2.7) 10/01/17 15:13 Total Bilirubin 0.80 mg/dL (0.2-1.0) 10/01/17 15:13 AST 26 U/L (13-39) 10/01/17 15:13 ALT 9 U/L (7-52) 10/01/17 15:13 Alkaline Phosphatase 58 U/L (34-104) 10/01/17 15:13 C-Reactive Protein 13.87 mg/L (< 5.00) H 10/01/17 15:13 Total Protein 6.4 g/dL (6.4-8.9) 10/01/17 15:13 Albumin 3.5 g/dL (3.2-5.2) 10/01/17 15:13 Globulin 2.9 g/dL (2-4) 10/01/17 15:13 Albumin/Globulin Ratio 1.2 (1-3) 10/01/17 15:13 Influenza A (Rapid) Negative (Negative) 10/01/17 22:33 Influenza B (Rapid) Positive (Negative) H 10/01/17 22:33 Assessment: []86 y/o female with fall from wheelchair s/p ORIF R distal femur 10/02/2017. Influenza B Plan: []TDWB RLE ROM as tolerated Daily dry sterile dressing change D/C to [facility] long-term care today. Did not DC yesterday due to insurance delay F/U Dr Yuan 10-14 days post-op Coumadin per medicine
== END 2017-10-07 11:25 | DRG 308 ==
LOC: ED 14:30 → MEDTELE 17:19 → MED 10-02 21:50
PROVIDERS: ADMIT Internal Medicine; ATTEND Internal Medicine
PROC: 0QSB04Z Reposition Right Lower Femur with Internal Fixation Device, Open Approach (ICD-10-PCS; principal; 2017-10-01)
DX: S72.401A Unspecified fracture of lower end of right femur, initial encounter for closed fracture (principal); I13.0 Hypertensive heart and chronic kidney disease with heart failure and stage 1 through stage 4 chronic kidney disease, or unspecified chronic kidney disease; I50.9 Heart failure, unspecified; I48.91 Unspecified atrial fibrillation; I08.1 Rheumatic disorders of both mitral and tricuspid valves; J44.9 Chronic obstructive pulmonary disease, unspecified; K21.9 Gastro-esophageal reflux disease without esophagitis; F03.90 Unspecified dementia, unspecified severity, without behavioral disturbance, psychotic disturbance, mood disturbance, and anxiety; M85.80 Other specified disorders of bone density and structure, unspecified site; I73.9 Peripheral vascular disease, unspecified; E78.5 Hyperlipidemia, unspecified; W05.0XXA Fall from non-moving wheelchair, initial encounter; Z96.641 Presence of right artificial hip joint; J10.1 Influenza due to other identified influenza virus with other respiratory manifestations; N18.3 Chronic kidney disease, stage 3 (moderate); Z99.3 Dependence on wheelchair; Z82.49 Family history of ischemic heart disease and other diseases of the circulatory system; Y92.9 Unspecified place or not applicable; Z79.01 Long term (current) use of anticoagulants; Z86.73 Personal history of transient ischemic attack (TIA), and cerebral infarction without residual deficits; R00.0 Tachycardia, unspecified
CPT/HCPCS: 36415; 71045; 72170; 76001; 80048; 80053; 83735; 85025; 85610; 85730; 86140; 87502; 93005; 94760; 99284; A9270-GY; C1713; J0690; J1650; J2250; J2270; J3010

== ENCOUNTER 2017-11-21 06:08 | Inpatient (IN) | payer OTHER ==
[2017-11-21] MEDS ORDERED: NS 0.9% 500 ML* 500 ML IV ONE (09:04)
--- NOTE | 2017-11-21 09:39 | RAD ---
INDICATION: Fall COMPARISON: October 01, 2017 TECHNIQUE: An AP portable view obtained at 0910 hours is submitted. FINDINGS: Bones/Soft Tissues: There are no acute bony findings. Cardiomediastinal: The cardiac silhouette is enlarged. Lungs: There are no infiltrates. There is hyperinflation. Pleura: There are no pleural effusions. Other: None IMPRESSION: CARDIOMEGALY. HYPERINFLATION.
--- NOTE | 2017-11-21 09:49 | RAD ---
HISTORY: Fall, found down COMPARISONS: December 05, 2014 TECHNIQUE: Multiple contiguous axial CT scans were obtained of the head without intravenous contrast. FINDINGS: HEMORRHAGE/INFARCT: There is no hemorrhage or acute infarct. MASSES/SHIFT: There is no mass or shift. EXTRA-AXIAL SPACES: There are no extra-axial fluid collections. SULCI AND VENTRICLES: There is diffuse and proportional enlargement of the sulci and ventricles. CEREBRUM: There is hypoattenuation of the periventricular and subcortical white matter. BRAINSTEM: There are no focal parenchymal abnormalities. CEREBELLUM: There is a chronic infarct of the left inferior cerebellum. VESSELS: There is calcification of the cavernous segments of the internal carotid arteries bilaterally and of the distal vertebral arteries bilaterally. PARANASAL SINUSES: The paranasal sinuses are clear. ORBITS: The orbits are unremarkable. BONES AND SOFT TISSUE: No bone or soft tissue abnormalities are noted. OTHER: None IMPRESSION: 1. NO ACUTE INTRACRANIAL PATHOLOGY. 2. DIFFUSE INVOLUTIONAL CHANGE WITH CHRONIC SMALL VESSEL ISCHEMIC CHANGES. 3. CHRONIC LEFT CEREBELLAR INFARCT. 4. ATHEROSCLEROSIS.
--- NOTE | 2017-11-21 10:01 | RAD ---
INDICATION: 86-year-old with fall. Abdominal pain. Evaluate for abdominal injury. History of left femoral fracture with ORIF COMPARISON: None TECHNIQUE: Noncontrast axial source images were acquired from the level hemidiaphragms to the symphysis pubis as part of CT imaging for renal stone. Lung bases: There is cardiomegaly. There is a calcified mitral annulus. There is mild bibasilar atelectasis.. Liver: The liver is normal in size. Noncontrast imaging shows no evidence of a hepatic mass or ductal dilatation. Gallbladder: There are no calcified gallstones. There is no evidence of wall thickening or pericholecystic fluid.. Spleen: The spleen is normal in size. The noncontrast CT appearance is normal. Pancreas: Noncontrast imaging shows no pancreatic mass or ductal dilitation. The pancreas is atrophic Adrenal glands: No masses are identified. Kidneys/Bladder: There is no definitive evidence of nephrolithiasis and no CT evidence of hydronephrosis. There is a left renal constipation but this is believed to be vascular. Noncontrast imaging shows no evidence of a renal mass. The bladder is unremarkable.. Adenopathy: There is no evidence of intraperitoneal or retroperitoneal adenopathy. Evaluation is limited without oral contrast. Fluid collections: There are no free or localized fluid collections. Vessels: There are advanced atherosclerotic changes of the aorta and iliac vessels. There is no focal aneurysm. The IVC appears normal Pelvic organs: The uterus and adnexa appear normal GI tract: Evaluation of the bowel is limited without oral contrast. There is a large hiatal hernia. There are no gross abnormalities of the small bowel. There are diverticula scattered throughout the colon with no CT findings suggestive of acute diverticulitis. Soft tissues: No soft tissue abnormalities of the extraperitoneal abdomen or pelvis are identified. Osseous structures: There is osteopenia with spondylitic change of the visualized thoracic and lumbar spine. There is no acute pelvic fracture or evidence of diastases of the symphysis or SI joints. There is artifact from right hip arthroplasty and left femoral nailing. IMPRESSION: LIMITED NONCONTRAST IMAGING DEMONSTRATES NO ACUTE CT FINDINGS.
--- NOTE | 2017-11-21 10:22 | RAD ---
Indication: Posterior RIGHT knee pain after fall. Post ORIF. Comparison: November 14, 2017 radiographs. Technique: Noncontrast CT RIGHT femur. Multiplanar reformation. Report: Significant artifact from the prosthetic hip and mid to distal cortical plate and fixation screws. Diffuse skeletal muscle atrophy. Complex 1.6 cm AP by 3.1 cm transverse by 4.4 cm cephalocaudal popliteal cyst with evidence for synovitis and fat density contents likely reflecting sequela of previous lipohemarthrosis. No significant surrounding inflammatory change or appreciable mass effect to suggest presence of tumor. No loculated soft tissue plane hematoma evident. Moderate knee joint effusion. Peripheral vascular calcifications. Negative for popliteal artery aneurysm. No compelling callus formation at the internally fixed comminuted fracture at the distal diaphysis and distal metaphysis of the femur. The fracture fragments appear grossly unchanged in alignment. No compelling evidence for fixation hardware component failure or loosening. No compelling evidence for loosening of the hip prosthesis or periprosthetic fracture. Osteophytosis and moderately severe joint space narrowing at the medial greater than lateral joint compartments of the knee. Associated partial flattening of the articular surfaces and subchondral sclerosis. IMPRESSION: 1. No compelling evidence for internal fixation hardware component failure or loosening. Stable alignment at the comminuted fracture at the distal diaphysis and distal metaphysis of the femur. 2. Negative for soft tissue hematoma. 3. Complex 1.6 cm AP by 3.1 cm transverse by 4.4 cm cephalocaudal popliteal cyst with evidence for synovitis and fat density contents likely reflecting sequela of previous lipohemarthrosis. 4. Moderate knee joint effusion. 5. 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
[2017-11-21 10:30] LABS: ABS Basophils 0 10^3/ul (0-0.2); ABS Eosinophils 0.1 10^3/ul (0-0.6); ABS Monocytes 0.7 10^3/ul (0-0.8); ABS Neutrophils 8.3 10^3/ul (1.5-7.7); ABS Nucleated RBC 0 10^3/ul; Eosinophil % 0.6 % (0-6); Hematocrit 37 % (35-47); Hemoglobin 11.9 g/dl (12.0-16.0); Lymphocyte % 10.3 % (25-47); Mean Corpuscular HGB Conc 32 g/dl (31-36); Mean Corpuscular Hemoglobin 28 pg (27-31); Mean Corpuscular Volume 87 fL (80-97); Mean Platelet Volume 9.7 um3 (7.4-10.4); Nucleated Red Blood Cells % 0; Platelet Count 232 10^3/ul (150-450); Red Blood Count 4.27 10^6/ul (4.0-5.4); Red Cell Distribution Width 18 % (10.5-15); White Blood Count 10.1 10^3/ul (3.5-10.8)
[2017-11-21 10:37] LABS: Urine Appearance Cloudy; Urine Blood Negative (Negative); Urine Color Yellow; Urine Ketones Negative (Negative); Urine Protein Negative (Negative); Urine Specific Gravity 1.015 (1.010-1.030); Urine Urobilinogen Negative (Negative)
[2017-11-21 10:44] LABS: INR 2.29 (0.77-1.02)
[2017-11-21 10:53] LABS: EGFR Non-African American 29.5 (>60)
[2017-11-21] MEDS ORDERED: cefTRIAXone(*) 1 GM in NS 0.9% 50 ML* 50 ML IVPB ONE (11:37)
[2017-11-21] MEDS ORDERED: cefTRIAXone 1000 MG SYRINGE IVPB Q24H (in NaCl) IVPB ONE ×2 (12:00)
[2017-11-21] MEDS ORDERED: NS 0.9% 50 ML* 50 ML ONE (12:06)
--- NOTE | 2017-11-21 12:38 | ED ---
Robin Crews Jason, scribed for Hemalatha Dang MD on 11/21/17 at 1006 . Lower Extremity - HPI Summary HPI Summary: This patient is a 86 year old F BIBA from [facility] presenting to [facility] with a chief complaint of an unwitnessed fall since this morning. EMS states that the patient was found on the floor, having experienced an unwitnesed fall. The patient is unable to provide medical history due to dementia. The patient rates the pain 0/10 in severity. Symptoms aggravated by movement. Symptoms alleviated by nothing. Patient reports right femur pain. - History of Current Complaint Chief Complaint: EDExtremityLower Stated Complaint: FALL Time Seen by Provider: 11/21/17 08:25 Hx Obtained From: Patient, EMS, Medical Records Hx From Patient Unobtainable Due To: Dementia Mechanism Of Injury: Other - unwitnessed fall Onset of Pain: Prior to Arrival Onset/Duration: Still Present Pain Intensity: 0 Pain Scale Used: 0-10 Numeric Associated Signs And Symptoms: Positive: Other - right femur pain Aggravating Factor(s): Movement Alleviating Factor(s): Nothing - Allergies/Home Medications Allergies/Adverse Reactions: Allergies Allergy/AdvReac Type Severity Reaction Status Date / Time No Known Allergies Allergy Verified 11/21/17 06:16 PMH/Surg Hx/FS Hx/Imm Hx Previously Healthy: No Endocrine/Hematology History: Denies: Hx Anticoagulant Therapy Cardiovascular History: Reports: Hx Congestive Heart Failure, Hx Hypertension, Other Cardiovascular Problems/Disorders - a-fib Denies: Hx Pacemaker/ICD Respiratory History: Reports: Hx Chronic Obstructive Pulmonary Disease (COPD) GI History: Reports: Hx Gastroesophageal Reflux Disease, Other GI Disorders - "slow bowels" History: Reports: Hx Chronic Renal Failure Sensory History: Denies: Hx Cataracts, Hx Contacts or Glasses, Hx Eye Injury, Hx Hearing Aid Opthamlomology History: Denies: Hx Cataracts, Hx Contacts or Glasses, Hx Eye Injury Neurological History: Reports: Hx Dementia Comment Only: Other Neuro Impairments/Disorders - Forgetful Psychiatric History: Denies: Hx Panic Disorder - Surgical History Surgery Procedure, Year, and Place: RIGHT HIP Hx Anesthesia Reactions: No - Immunization History Date of Tetanus Vaccine: unk Date of Influenza Vaccine: unk Infectious Disease History: Unable to Obtain/Confirm Infectious Disease History: Denies: Traveled Outside the [place] in Last 30 Days - Family History Known Family History: Positive: Hypertension - Social History Alcohol Use: None Substance Use Type: Reports: None Smoking Status (MU): Never Smoked Tobacco Review of Systems Negative: Fever, Chills Positive: Other - Right femur pain All Other Systems Reviewed And Are Negative: Yes Physical Exam - Summary Physical Exam Summary: Constitutional: Well-developed, Well-nourished, Alert. (-) Distressed Skin: Warm, Dry HENT: Normocephalic; Atraumatic. Dry mucous membrane Eyes: Conjunctiva normal Neck: Musculoskeletal ROM normal neck. (-) JVD, (-) Stridor, (-) Tracheal deviation Cardio: Irregular rate and rhythm, pt is tachycardic. Heart sounds normal; Intact distal pulses; The pedal pulses are 2+ and symmetric. Radial pulses are 2 + and symmetric. (-) Murmur Pulmonary/Chest wall: Effort normal. (-) Respiratory distress, (-) Wheezes, (-) Rales Abd: Soft, (-) Distension, (-) Guarding, (-) Rebound. Tender to palpation the abdomen Musculoskeletal: (-) Edema. Tender to palpation in the right hip area. Patient has a right leg brace on. Lymph: (-) Cervical adenopathy Neuro: Alert, Oriented x3 Psych: Mood and affect Normal Triage Information Reviewed: Yes Vital Signs On Initial Exam: Initial Vitals Temp Pulse Resp BP Pulse Ox 98.0 F 93 16 128/47 92 11/21/17 06:10 11/21/17 06:10 11/21/17 06:10 11/21/17 06:10 11/21/17 06:10 Vital Signs Reviewed: Yes Diagnostics - Vital Signs Vital Signs Temp Pulse Resp BP Pulse Ox 11/21/17 08:00 83 19 117/51 95 11/21/17 07:30 83 20 118/101 96 11/21/17 07:27 84 23 123/65 95 11/21/17 07:16 89 17 92 11/21/17 06:10 98.0 F 93 16 128/47 92 - Laboratory Lab Results: Lab Results 11/21/17 11/21/17 11/21/17 Range/Units 09:52 09:52 09:52 WBC (3.5-10.8) 10^3/ul RBC (4.0-5.4) 10^6/ul Hgb (12.0-16.0) g/dl Hct (35-47) % MCV (80-97) fL MCH (27-31) pg MCHC (31-36) g/dl RDW (10.5-15) % Plt Count (150-450) 10^3/ul MPV (7.4-10.4) um3 Neut % (Auto) (38-83) % Lymph % (Auto) (25-47) % [place] % (Auto) (0-7) % Eos % (Auto) (0-6) % Baso % (Auto) (0-2) % Absolute Neuts (auto) (1.5-7.7) 10^3/ul Absolute Lymphs (auto) (1.0-4.8) 10^3/ul Absolute Monos (auto) (0-0.8) 10^3/ul Absolute Eos (auto) (0-0.6) 10^3/ul Absolute Basos (auto) (0-0.2) 10^3/ul Absolute Nucleated RBC 10^3/ul Nucleated RBC % INR (Anticoag Therapy) 2.29 H (0.77-1.02) APTT 39.4 H (26.0-36.3) seconds Sodium 142 (139-145) mmol/L Potassium 4.1 (3.5-5.0) mmol/L Chloride 103 (101-111) mmol/L Carbon Dioxide 30 (22-32) mmol/L Anion Gap 9 (2-11) mmol/L BUN 35 H (6-24) mg/dL Creatinine 1.65 H (0.51-0.95) mg/dL Est GFR ( Amer) 37.9 (>60) Est GFR (Non-Af Amer) 29.5 (>60) BUN/Creatinine Ratio 21.2 H (8-20) Glucose 97 (70-100) mg/dL Lactic Acid (0.5-2.0) mmol/L Calcium 10.5 H (8.6-10.3) mg/dL Total Bilirubin 0.60 (0.2-1.0) mg/dL Direct Bilirubin 0.20 H (0.03-0.18) mg/dL Indirect Bilirubin 0.4 (0.3-1.0) mg/dL AST 31 (13-39) U/L ALT 12 (7-52) U/L Alkaline Phosphatase 80 (34-104) U/L Total Creatine Kinase 161 (10-223) U/L Troponin I 0.06 H* (<0.04) ng/mL C-Reactive Protein 29.29 H (< 5.00) mg/L B-Natriuretic Peptide 275 H ( - 100) pg/mL Total Protein 7.0 (6.4-8.9) g/dL Albumin 3.4 (3.2-5.2) g/dL Globulin 3.6 (2-4) g/dL Albumin/Globulin Ratio 0.9 L (1-3) Urine Color Urine Appearance Urine pH (5-9) Ur Specific [place] (1.010-1.030) Urine Protein (Negative) Urine Ketones (Negative) Urine Blood (Negative) Urine Nitrate (Negative) Urine Bilirubin (Negative) Urine Urobilinogen (Negative) Ur Leukocyte Esterase (Negative) Urine WBC (Auto) (Absent) Urine RBC (Auto) (Absent) Ur Squamous Epith Cells (Absent) Urine Bacteria (Absent) Hyaline Casts (Absent) Urine Glucose (Negative) 11/21/17 11/21/17 11/21/17 Range/Units 09:52 09:52 10:10 WBC 10.1 (3.5-10.8) 10^3/ul RBC 4.27 (4.0-5.4) 10^6/ul Hgb 11.9 L (12.0-16.0) g/dl Hct 37 (35-47) % MCV 87 (80-97) fL MCH 28 (27-31) pg MCHC 32 (31-36) g/dl RDW 18 H (10.5-15) % Plt Count 232 (150-450) 10^3/ul MPV 9.7 (7.4-10.4) um3 Neut % (Auto) 81.9 (38-83) % Lymph % (Auto) 10.3 L (25-47) % [place] % (Auto) 6.7 (0-7) % Eos % (Auto) 0.6 (0-6) % Baso % (Auto) 0.5 (0-2) % Absolute Neuts (auto) 8.3 H (1.5-7.7) 10^3/ul Absolute Lymphs (auto) 1.0 (1.0-4.8) 10^3/ul Absolute Monos (auto) 0.7 (0-0.8) 10^3/ul Absolute Eos (auto) 0.1 (0-0.6) 10^3/ul Absolute Basos (auto) 0 (0-0.2) 10^3/ul Absolute Nucleated RBC 0 10^3/ul Nucleated RBC % 0 INR (Anticoag Therapy) (0.77-1.02) APTT (26.0-36.3) seconds Sodium (139-145) mmol/L Potassium (3.5-5.0) mmol/L Chloride (101-111) mmol/L Carbon Dioxide (22-32) mmol/L Anion Gap (2-11) mmol/L BUN (6-24) mg/dL Creatinine (0.51-0.95) mg/dL Est GFR ( Amer) (>60) Est GFR (Non-Af Amer) (>60) BUN/Creatinine Ratio (8-20) Glucose (70-100) mg/dL Lactic Acid 1.2 (0.5-2.0) mmol/L Calcium (8.6-10.3) mg/dL Total Bilirubin (0.2-1.0) mg/dL Direct Bilirubin (0.03-0.18) mg/dL Indirect Bilirubin (0.3-1.0) mg/dL AST (13-39) U/L ALT (7-52) U/L Alkaline Phosphatase (34-104) U/L Total Creatine Kinase (10-223) U/L Troponin I (<0.04) ng/mL C-Reactive Protein (< 5.00) mg/L B-Natriuretic Peptide ( - 100) pg/mL Total Protein (6.4-8.9) g/dL Albumin (3.2-5.2) g/dL Globulin (2-4) g/dL Albumin/Globulin Ratio (1-3) Urine Color Yellow Urine Appearance Cloudy Urine pH 6.0 (5-9) Ur Specific [place] 1.015 (1.010-1.030) Urine Protein Negative (Negative) Urine Ketones Negative (Negative) Urine Blood Negative (Negative) Urine Nitrate Positive A (Negative) Urine Bilirubin Negative (Negative) Urine Urobilinogen Negative (Negative) Ur Leukocyte Esterase 3+ A (Negative) Urine WBC (Auto) 3+(>20/hpf) A (Absent) Urine RBC (Auto) 2+(6-10/hpf) A (Absent) Ur Squamous Epith Cells Present A (Absent) Urine Bacteria 1+ A (Absent) Hyaline Casts Present A (Absent) Urine Glucose Negative (Negative) Result Diagrams: 11/21/17 09:52 11/21/17 09:52 Lab Statement: Any lab studies that have been ordered have been reviewed, and results considered in the medical decision making process. - Radiology cxr Radiology Interpretation Completed By: Radiologist - CXR reveals, per radiologist, IMPRESSION: CARDIOMEGALY. HYPERINFLATION. ED physician has reviewed this radiology report. - CT Brain CT Interpretation Completed By: Radiologist - Brain CT reveals, per radiologist , 1. NO ACUTE INTRACRANIAL PATHOLOGY. 2. DIFFUSE INVOLUTIONAL CHANGE WITH CHRONIC SMALL VESSEL ISCHEMIC CHANGES. 3. CHRONIC LEFT CEREBELLAR INFARCT. 4. ATHEROSCLEROSIS. ED physician has reviewed this radiology report. abdomen/pelvis CT Interpretation Completed By: Radiologist - LIMITED NONCONTRAST IMAGING DEMONSTRATES NO ACUTE CT FINDINGS. ED physician has reviewed this radiology report. Lower Extremity CT Interpretation Completed By: Radiologist - Lower extremity CT reveals, per radiologist, 1. No compelling evidence for internal fixation hardware component failure or loosening. Stable alignment at the comminuted fracture at the distal diaphysis and distal metaphysis of the femur. 2. Negative for soft tissue hematoma. 3. Complex 1.6 cm AP by 3.1 cm transverse by 4.4 cm cephalocaudal popliteal cyst with evidence for synovitis and fat density contents likely reflecting sequela of previous lipohemarthrosis. 4. Moderate knee joint effusion. 5. 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 ED physician has reviewed this radiology report. - EKG 0912 Cardiac Rate: Tachycardia - 95 bpm EKG Rhythm: Atrial Fibrillation ST Segment: Normal EKG Interpretation: LBBB EKG Comparison: No Significant Change - compared to ekg at 10/01/2017 Lower Extremity Course/Dx - Course Course Of Treatment: 86 year old female who presents to the ED with an unwitnessed fall. CT head, abdomen, Right femur shows no acute etiology. Work- up remarkable for mild elevated troponin, UTI. Patient will be admitted to hospitalist. Patient HD stable upon admission - Diagnoses Provider Diagnoses: UTI (urinary tract infection) - Physician Notifications Discussed Care Of Patient With: Eren Ruiz Time Discussed With Above Provider: 12:05 Instructed by Provider To: Admit As Inpatient Discharge - Sign-Out/Discharge Documenting (check all that apply): Discharge - Discharge Plan Condition: Stable Disposition: ADMITTED TO [facility] Referrals: No Primary Care Phys,NOPCP [Primary Care Provider] - - Billing Disposition and Condition Condition: STABLE Disposition: [facility] [place] The documentation as recorded by the Robin linder Jason accurately reflects the service I personally performed and the decisions made by Alton almaraz Tudi-Ann, MD.
[2017-11-21] MEDS ORDERED: cefTRIAXone(*) 1 GM in NS 0.9% 100 ML* 100 ML IVPB ONE (13:00)
[2017-11-21] MEDS ORDERED: Docusate CAP* 100 MG PO PRN (13:30)
[2017-11-21] MEDS ORDERED: Senna TAB PO PRN (13:30)
[2017-11-21] MEDS ORDERED: oxyCODONE TAB* 5 MG TAB PO PRN (13:54)
[2017-11-21] MEDS ORDERED: Warfarin TAB(*) 1 MG PO SCH (17:00)
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
[2017-11-21] MEDS: Atorvastatin* 20 MG TAB PO SCH (21:15)
[2017-11-21] MEDS: Mirtazapine TAB* 15 MG PO SCH (21:15)
[2017-11-22 05:59] LABS: ABS Basophils 0 10^3/ul (0-0.2); ABS Eosinophils 0.2 10^3/ul (0-0.6); ABS Lymphocytes 1.3 10^3/ul (1.0-4.8); ABS Neutrophils 4.9 10^3/ul (1.5-7.7); ABS Nucleated RBC 0 10^3/ul; Eosinophil % 2.7 % (0-6); Hematocrit 32 % (35-47); Hemoglobin 10.3 g/dl (12.0-16.0); Lymphocyte % 18.1 % (25-47); Mean Corpuscular HGB Conc 33 g/dl (31-36); Mean Corpuscular Hemoglobin 28 pg (27-31); Mean Corpuscular Volume 87 fL (80-97); Nucleated Red Blood Cells % 0; Platelet Count 189 10^3/ul (150-450); Red Blood Count 3.66 10^6/ul (4.0-5.4); Red Cell Distribution Width 17 % (10.5-15); White Blood Count 7.5 10^3/ul (3.5-10.8)
[2017-11-22 06:02] LABS: INR 2.07 (0.77-1.02)
[2017-11-22 06:13] LABS: EGFR Non-African American 36.6 (>60)
[2017-11-22] MEDS: Potassium Chlor TAB* 10 MEQ TAB.ER PO SCH (08:31)
[2017-11-22] MEDS: Carvedilol TAB* 3.125 MG PO SCH ×2 (08:31→22:01)
[2017-11-22] MEDS: Ferrous Sulfate TAB* 325 MG PO SCH (08:31)
[2017-11-22] MEDS ORDERED: Ferrous Sulfate TAB* 325 MG PO SCH (09:00)
[2017-11-22] MEDS: cefTRIAXone 1000 MG SYRINGE IVPB Q24H (in NaCl) IVPB SCH ×2 (11:58)
[2017-11-22] MEDS ORDERED: cefTRIAXone(*) 1 GM in NS 0.9% 50 ML* 50 ML IVPB SCH (12:00)
[2017-11-22] MEDS ORDERED: Acetaminophen TAB* 325 MG PO PRN (14:40)
--- NOTE | 2017-11-22 14:55 | PN ---
Subjective Date of Service: 11/22/17 Interval History: Patient very confused today, unable to focus on conversation at hand. Denies any pain, F/C, N/V, abdominal pain, diarrhea, dizziness, palpitations, CP, SOB, or other pain. Patient unable to stand on left leg due to pain but unable to elaborate on whether or not this is new or similar to previous postoperative pain. Family History: Unchanged from Admission Social History: Unchanged from Admission Past Medical History: Unchanged from Admission Objective Active Medications: Acetaminophen (Tylenol Tab*) 650 mg PO Q6H PRN PRN Reason: PAIN Atorvastatin Calcium (Lipitor*) 20 mg PO BEDTIME [facility] Last Admin: 11/21/17 21:15 Dose: 20 mg Carvedilol (Coreg Tab*) 3.125 mg PO 0900,2100 [facility] Last Admin: 11/22/17 08:31 Dose: 3.125 mg Docusate Sodium (Colace Cap*) 100 mg PO BID PRN PRN Reason: CONGESTION Ferrous Sulfate (Ferrous Sulfate Tab*) 325 mg PO EVERY OTHER DAY [facility] Last Admin: 11/22/17 08:31 Dose: 325 mg Ceftriaxone Sodium 1,000 mg/ (Sodium Chloride) 10 mls @ 40 mls/hr IVPB Q24H [facility] Last Admin: 11/22/17 11:58 Dose: 40 mls/hr Lactulose (Lactulose*) 30 ml PO Q6HR PRN PRN Reason: CONSTIPATION Mirtazapine (Remeron Tab*) 30 mg PO 2100 [facility] Last Admin: 11/21/17 21:15 Dose: 30 mg Oxycodone HCl (Roxycodone Tab*) 5 mg PO Q4H PRN PRN Reason: PAIN Potassium Chloride (Klor Con Er Tab*) 10 meq PO 0900 [facility] Last Admin: 11/22/17 08:31 Dose: 10 meq Senna (Senokot Tab*) 1 tab PO DAILY PRN PRN Reason: CONSTIPATION Warfarin Sodium (Coumadin Tab(*)) 1.5 mg PO DAILY@1700 [facility] PRN Reason: Protocol Vital Signs - 8 hr 11/22/17 11/22/17 11/22/17 08:00 08:10 08:14 Temperature 97.8 F Pulse Rate 97 98 Respiratory 20 Rate Blood Pressure 123/82 123/82 137/99 (mmHg) O2 Sat by Pulse 100 Oximetry 11/22/17 11:39 Temperature 98.7 F Pulse Rate 80 Respiratory 20 Rate Blood Pressure 111/58 (mmHg) O2 Sat by Pulse 100 Oximetry Oxygen Devices in Use Now: None Appearance: Patient is an 86yo female who appears stated age and is sitting in the bed in NAD. Eyes: No Scleral Icterus, PERRLA Ears/Nose/Mouth/Throat: NL Teeth, Lips, Gums, Clear Oropharnyx, Mucous Membranes Moist Neck: NL Appearance and Movements; NL JVP, Trachea Midline Respiratory: Symmetrical Chest Expansion and Respiratory Effort, Clear to Auscultation Cardiovascular: NL Sounds; No Murmurs; No JVD, RRR, No Edema Abdominal: NL Sounds; No Tenderness; No Distention, No Hepatosplenomegaly Lymphatic: No Cervical Adenopathy Extremities: No Edema, No Clubbing, Cyanosis, - - Left knee swelling. In immobilizer. Good pulses, no tenderness to palpation. No ecchymosis. Skin: No Rash or Ulcers, No Nodules or Sclerosis Neurological: NL Sensation, - - Diffusely weak without focality. CN II-XII intact. AxOx1 Result Diagrams: 11/22/17 05:48 11/22/17 05:48 Additional Lab and Data: Lab Results Microbiology and Other Data: Microbiology 11/21/17 13:10 Aerobic Blood Culture - Preliminary Blood Venous No Growth Day 1 Anaerobic Blood Culture - Preliminary No Growth Day 1 11/21/17 13:18 Nasal Screen MRSA (PCR)(ARIANE) - Final Nasal Mrsa Not Detected Assess/Plan/Problems-Billing Assessment: Patient is an 86yo female with a PMH for CHF, CAD, Afib, who is currently in rehab from a previous ORIF of her right femur when she fell and had unknown down time. Patient unable to relate circumstances of her fall but was found to have a UTI and sepsis. Responded to fluids and antibiotics but unable to bear significant weight on right leg with PT. - Patient Problems (1) Fracture of distal end of right femur Current Visit: No Status: Acute Code(s): S72.401A - UNSP FRACTURE OF LOWER END OF RIGHT FEMUR, INIT FOR CLOS FX SNOMED Code(s): 417843694 Comment: ORIF done 10/02. No hardware dysfunction on CT. Knee effusion and Pain with weight bearing. Continue PT and pain control. No New fracture. (2) UTI (urinary tract infection) Current Visit: Yes Status: Acute Comment: Grew out klebsiella pneumoniae. No growth on blood cultures. Likely cause of sepsis and fall. Continue ceftriaxone. Sepsis resolved. (3) Dementia Current Visit: No Status: Acute Code(s): F03.90 - UNSPECIFIED DEMENTIA WITHOUT BEHAVIORAL DISTURBANCE SNOMED Code(s): 05983377 Comment: No behavior disturbances noted. Continue mirtazepine and supportive care. (4) CAD (coronary artery disease) Current Visit: Yes Status: Acute Code(s): I25.10 - ATHSCL HEART DISEASE OF [place] CORONARY ARTERY W/O ANG PCTRS SNOMED Code(s): 14713750 Comment: Known CAD. Stable increase in troponin to .06x2. Likely from demand ischemia in acute infection and sepsis. No further testing at this time. (5) CHF (congestive heart failure) Current Visit: Yes Status: Acute Code(s): I50.9 - HEART FAILURE, UNSPECIFIED SNOMED Code(s): 28785960 Comment: Not in exacerbation. BNP 226. Only 500mls given for sepsis with adequate response in BP. (6) CKD (chronic kidney disease) Current Visit: Yes Status: Acute Code(s): N18.9 - CHRONIC KIDNEY DISEASE, UNSPECIFIED SNOMED Code(s): 737357324 Comment: Stage III, Increased above baseline on admission. Now back to baseline. (7) Atrial fibrillation Current Visit: No Status: Acute Code(s): I48.91 - UNSPECIFIED ATRIAL FIBRILLATION SNOMED Code(s): 06951243 Comment: Rate controlled, Continue Carvedilol Continue with coumadin and INR daily. (8) HLD (hyperlipidemia) Current Visit: Yes Status: Acute Code(s): E78.5 - HYPERLIPIDEMIA, UNSPECIFIED SNOMED Code(s): 19112844 Comment: Continue lipitor. (9) CVA (cerebral vascular accident) Current Visit: Yes Status: Acute Code(s): I63.9 - CEREBRAL INFARCTION, UNSPECIFIED SNOMED Code(s): 301660928 Comment: Continue secondary prevention. (10) DVT prophylaxis Current Visit: No Status: Acute Code(s): ENZ3876 - SNOMED Code(s): 393005583 Comment: Coumadin, INR therapeutic. Status and Disposition: Admitted inpatient. Back to [facility] for rehab at discharge.
[2017-11-22] MEDS: Warfarin TAB(*) 1 MG PO SCH (16:22)
[2017-11-22] MEDS: Mirtazapine TAB* 15 MG PO SCH (22:01)
[2017-11-22] MEDS: Atorvastatin* 20 MG TAB PO SCH (22:01)
[2017-11-23 05:49] LABS: ABS Basophils 0 10^3/ul (0-0.2); ABS Eosinophils 0.3 10^3/ul (0-0.6); ABS Lymphocytes 1.4 10^3/ul (1.0-4.8); ABS Monocytes 0.8 10^3/ul (0-0.8); ABS Neutrophils 4.6 10^3/ul (1.5-7.7); ABS Nucleated RBC 0 10^3/ul; Eosinophil % 4.5 % (0-6); Hematocrit 30 % (35-47); Hemoglobin 9.9 g/dl (12.0-16.0); Lymphocyte % 19.1 % (25-47); Mean Corpuscular HGB Conc 33 g/dl (31-36); Mean Corpuscular Hemoglobin 29 pg (27-31); Mean Corpuscular Volume 86 fL (80-97); Mean Platelet Volume 8.7 um3 (7.4-10.4); Nucleated Red Blood Cells % 0; Platelet Count 179 10^3/ul (150-450); Red Blood Count 3.46 10^6/ul (4.0-5.4); Red Cell Distribution Width 17 % (10.5-15); White Blood Count 7.1 10^3/ul (3.5-10.8)
[2017-11-23 06:05] LABS: EGFR Non-African American 45.2 (>60)
[2017-11-23 06:10] LABS: INR 1.69 (0.77-1.02)
[2017-11-23] MEDS: Potassium Chlor TAB* 10 MEQ TAB.ER PO SCH (08:35)
[2017-11-23] MEDS: Carvedilol TAB* 3.125 MG PO SCH ×2 (08:35→20:39)
[2017-11-23] MEDS: Furosemide TAB* 20 MG PO SCH (08:35)
[2017-11-23] MEDS: cefTRIAXone 1000 MG SYRINGE IVPB Q24H (in NaCl) IVPB SCH ×2 (12:03)
[2017-11-23] MEDS: Warfarin TAB(*) 1 MG PO SCH (16:33)
[2017-11-23] MEDS ORDERED: Warfarin TAB(*) 1 MG PO SCH (17:21)
[2017-11-23] MEDS ORDERED: Warfarin TAB(*) 1 MG PO ONE (18:00)
--- NOTE | 2017-11-23 18:45 | PN ---
Subjective Date of Service: 11/23/17 Interval History: pleasantly confused, Denies chest pain or shortness of breath. Denies abd pain ,n/v/d. Family History: Unchanged from Admission Social History: Unchanged from Admission Past Medical History: Unchanged from Admission Objective Active Medications: Acetaminophen (Tylenol Tab*) 650 mg PO Q6H PRN PRN Reason: PAIN Atorvastatin Calcium (Lipitor*) 20 mg PO BEDTIME [facility] Last Admin: 11/22/17 22:01 Dose: 20 mg Carvedilol (Coreg Tab*) 3.125 mg PO 0900,2100 [facility] Last Admin: 11/23/17 08:35 Dose: 3.125 mg Docusate Sodium (Colace Cap*) 100 mg PO BID PRN PRN Reason: CONGESTION Ferrous Sulfate (Ferrous Sulfate Tab*) 325 mg PO EVERY OTHER DAY [facility] Last Admin: 11/22/17 08:31 Dose: 325 mg Furosemide (Lasix Tab*) 20 mg PO 0900 [facility] Last Admin: 11/23/17 08:35 Dose: 20 mg Ceftriaxone Sodium 1,000 mg/ (Sodium Chloride) 10 mls @ 40 mls/hr IVPB Q24H [facility] Last Admin: 11/23/17 12:03 Dose: 40 mls/hr Lactulose (Lactulose*) 30 ml PO Q6HR PRN PRN Reason: CONSTIPATION Mirtazapine (Remeron Tab*) 30 mg PO 2100 [facility] Last Admin: 11/22/17 22:01 Dose: 30 mg Oxycodone HCl (Roxycodone Tab*) 5 mg PO Q4H PRN PRN Reason: PAIN Pharmacy Profile Note (Coumadin Daily Reminder*) 1 note FOLLOW UP 1700 [facility] Potassium Chloride (Klor Con Er Tab*) 10 meq PO 0900 [facility] Last Admin: 11/23/17 08:35 Dose: 10 meq Senna (Senokot Tab*) 1 tab PO DAILY PRN PRN Reason: CONSTIPATION Warfarin Sodium (Coumadin Tab(*)) 2 mg PO DAILY@1700 [facility] PRN Reason: Protocol Vital Signs - 8 hr 11/23/17 11/23/17 11/23/17 11:10 15:07 15:28 Temperature 97.5 F 97.9 F Pulse Rate 77 95 Respiratory 20 16 Rate Blood Pressure 110/60 103/64 (mmHg) O2 Sat by Pulse 97 96 97 Oximetry Oxygen Devices in Use Now: None Appearance: pleasantly confused , resting in bed , color pink Eyes: No Scleral Icterus Ears/Nose/Mouth/Throat: Mucous Membranes Moist Neck: NL Appearance and Movements; NL JVP, Trachea Midline Respiratory: Symmetrical Chest Expansion and Respiratory Effort, Clear to Auscultation Cardiovascular: NL Sounds; No Murmurs; No JVD Abdominal: NL Sounds; No Tenderness; No Distention Extremities: No Clubbing, Cyanosis, - - knee immobilizer intact to the left leg. Skin: No Rash or Ulcers Neurological: - - confused to place and time. Nutrition: Taking PO's Result Diagrams: 11/23/17 05:40 11/23/17 05:40 Additional Lab and Data: Lab Results Microbiology and Other Data: Microbiology 11/21/17 13:10 Aerobic Blood Culture - Preliminary Blood Venous No Growth Day 1 Anaerobic Blood Culture - Preliminary No Growth Day 1 11/21/17 13:18 Nasal Screen MRSA (PCR)(ARIANE) - Final Nasal Mrsa Not Detected Assess/Plan/Problems-Billing Assessment: Patient is an 86yo female with a PMH for CHF, CAD, Afib, who is currently in rehab from a previous ORIF of her right femur when she fell and had unknown down time. Patient unable to relate circumstances of her fall but was found to have a UTI and sepsis. Responded to fluids and antibiotics but unable to bear significant weight on right leg with PT. - Patient Problems (1) UTI (urinary tract infection) Current Visit: Yes Status: Acute Comment: ~klebsiella pneumoniae. ~No growth on blood cultures. suspect this is the cause of her sepsis and fall. ~Continue ceftriaxone. Sepsis resolved. (2) Fracture of distal end of right femur Current Visit: No Status: Acute Code(s): S72.401A - UNSP FRACTURE OF LOWER END OF RIGHT FEMUR, INIT FOR CLOS FX SNOMED Code(s): 619191293 Comment: ORIF done 10/02. No hardware dysfunction on CT. Knee effusion and Pain with weight bearing. Continue PT and pain control. No New fracture. ~ knee immobilizer in place (3) Dementia Current Visit: No Status: Acute Code(s): F03.90 - UNSPECIFIED DEMENTIA WITHOUT BEHAVIORAL DISTURBANCE SNOMED Code(s): 65446147 Comment: No behavior disturbances noted. Continue mirtazepine and supportive care. (4) CAD (coronary artery disease) Current Visit: Yes Status: Acute Code(s): I25.10 - ATHSCL HEART DISEASE OF [place] CORONARY ARTERY W/O ANG PCTRS SNOMED Code(s): 62052953 Comment: ~Known CAD. Stable increase in troponin to .06x2.suspct this is from demand ischemia in the setting of acute infection and sepsis. (5) CHF (congestive heart failure) Current Visit: Yes Status: Acute Code(s): I50.9 - HEART FAILURE, UNSPECIFIED SNOMED Code(s): 15517645 Comment: ~Not in exacerbation. BNP 226 on admission ~Only 500mls given for sepsis with adequate response in BP. ~ monitor strict i/o's (6) CKD (chronic kidney disease) Current Visit: Yes Status: Acute Code(s): N18.9 - CHRONIC KIDNEY DISEASE, UNSPECIFIED SNOMED Code(s): 674365599 Comment: ~ at baseline (7) HLD (hyperlipidemia) Current Visit: Yes Status: Acute Code(s): E78.5 - HYPERLIPIDEMIA, UNSPECIFIED SNOMED Code(s): 85409127 Comment: Continue lipitor. (8) Atrial fibrillation Current Visit: No Status: Acute Code(s): I48.91 - UNSPECIFIED ATRIAL FIBRILLATION SNOMED Code(s): 15767211 Comment: Rate controlled, Continue Carvedilol Continue with coumadin and INR daily. (9) DVT prophylaxis Current Visit: No Status: Acute Code(s): CKY5420 - SNOMED Code(s): 190299827 Comment: Coumadin, INR subtherapeutic. Will give 2mg of coumadin today repeat INR in the AM (10) DNR (do not resuscitate) Current Visit: Yes Status: Acute Status and Disposition: Admitted inpatient. Back to [facility] for rehab at discharge.
[2017-11-23] MEDS: Atorvastatin* 20 MG TAB PO SCH (20:38)
[2017-11-23] MEDS: Mirtazapine TAB* 15 MG PO SCH (20:38)
[2017-11-24 06:20] LABS: ABS Basophils 0.1 10^3/ul (0-0.2); ABS Eosinophils 0.3 10^3/ul (0-0.6); ABS Lymphocytes 1.6 10^3/ul (1.0-4.8); ABS Monocytes 0.8 10^3/ul (0-0.8); ABS Neutrophils 4.3 10^3/ul (1.5-7.7); ABS Nucleated RBC 0 10^3/ul; Eosinophil % 3.6 % (0-6); Hematocrit 32 % (35-47); Hemoglobin 10.4 g/dl (12.0-16.0); Lymphocyte % 22.1 % (25-47); Mean Corpuscular HGB Conc 32 g/dl (31-36); Mean Corpuscular Hemoglobin 28 pg (27-31); Mean Corpuscular Volume 86 fL (80-97); Mean Platelet Volume 8.6 um3 (7.4-10.4); Nucleated Red Blood Cells % 0.1; Platelet Count 192 10^3/ul (150-450); Red Blood Count 3.77 10^6/ul (4.0-5.4); Red Cell Distribution Width 17 % (10.5-15)
[2017-11-24 06:23] LABS: INR 1.25 (0.77-1.02)
[2017-11-24 06:33] LABS: EGFR Non-African American 36.3 (>60)
[2017-11-24] MEDS: Ferrous Sulfate TAB* 325 MG PO SCH (08:28)
[2017-11-24] MEDS: Carvedilol TAB* 3.125 MG PO SCH (08:28)
[2017-11-24] MEDS: Furosemide TAB* 20 MG PO SCH (08:28)
[2017-11-24] MEDS: Potassium Chlor TAB* 10 MEQ TAB.ER PO SCH (08:28)
[2017-11-24] MEDS ORDERED: Magnesium Sulfate 2 GM IV* 2 GM/50 ML BAG IVPB ONE (09:19)
[2017-11-24 11:23] VITALS: BP 116/74
[2017-11-24] MEDS: cefTRIAXone 1000 MG SYRINGE IVPB Q24H (in NaCl) IVPB SCH ×2 (13:36)
--- NOTE | 2017-11-24 13:48 | DS ---
CC: [facility] * DISCHARGE SUMMARY: DATE OF ADMISSION: 11/21/17 DATE OF DISCHARGE: 11/24/17 PRIMARY CARE PROVIDER: [facility]. MY ATTENDING WHILE IN THE HOSPITAL: Dr. Jagdish Chairez.* (DICTATED BY KENRICK ALVA) PRIMARY DISCHARGE DIAGNOSES: 1. Urinary tract infection, with meeting systemic inflammatory response syndrome criteria on admission due to klebsiella pneumonia. 2. Fall. SECONDARY DISCHARGE DIAGNOSES: 1. Status post open reduction internal fixation, right femur fracture on . 2. Atrial fibrillation. 3. Dementia. 4. Cerebrovascular accident. 5. Hypertension. 6. Hyperlipidemia. 7. Congestive heart failure. 8. [id number]-flqphn mitral valve regurgitation. 9. Vlbgryot-mq-camams tricuspid valve regurgitation. 10. Moderate pulmonary hypertension. 11. Chronic kidney disease, stage 3. 12. Dysphagia. STUDIES DONE WHILE IN THE HOSPITAL: Chest x-ray from 11/21/17 shows cardiomegaly, hyperinflation. Electrocardiogram from 11/21/17 read as atrial fibrillation, rate of 95, QTc of 465, left axis deviation, poor R-wave progression, no signs of hypertrophy or enlargement, no other abnormalities, no ST-segment changes. Abdomen and pelvis CT, read as limited non-contrast imaging demonstrates no acute findings. Brain CT read as no acute intracranial pathology, diffuse involutional change consistent with chronic small vessel ischemic changes, chronic left cerebellar infarct, atherosclerosis. Lower extremity CT read as no compelling evidence for internal fixation, hardware component failure or loosening, stable alignment of the comminuted fracture at the distal diaphysis and distal metaphysis of the femur. Negative for soft tissue hematoma, complex, 1.6 cm AP x 3.1 cm transverse x 4.4 cm cephalocaudal popliteal cyst with evidence of synovitis. Fat density contents likely reflecting sequela of previous lipohemarthrosis, moderate knee joint effusion, and Kellgren and Francois grade 3 to 4 osteoarthritis of the knee. MEDICATIONS AT DISCHARGE: 1. Potassium chloride 10 mEq p.o. q.a.m. 2. Furosemide 20 mg p.o. q.a.m. 3. Simvastatin 40 mg p.o. at bedtime. 4. Mirtazapine 30 mg p.o. at bedtime. 5. Tylenol 1000 mg p.o. t.i.d. as needed. 6. Senna 1 tab p.o. daily as needed. 7. Lactulose 30 mL p.o. q.6 hours as needed. 8. Docusate 100 mg p.o. b.i.d. as needed. 9. Ferrous sulfate 325 mg p.o. every other day. 10. Warfarin 2.5 mg p.o. q.p.m. 11. Calcium carbonate with vitamin D 600 one each p.o. b.i.d. 12. Carvedilol 3.125 mg p.o. b.i.d. 13. Oxycodone 5 mg p.o. q.4 hours as needed. 14. Cefpodoxime 200 mg p.o. q.12 hours x8. New medications at discharge: 1. Cefpodoxime. 2. Ferrous sulfate 325 mg p.o. every other day. Medications discontinued at discharge: Ferrous sulfate 325 mg p.o. daily. HOSPITAL COURSE: This is a brief summary of the patient's presentation. For more details, please see history and physical from Dr. Eren Ruiz on 11/21/17. In brief, the patient is an 86-year-old female with past medical history significant for the above, who has been residing at [facility], where she has been rehabbing from her ORIF and femur fracture. The patient was [employer] for transports before she came to the hospital, the patient was in her usual state of health, but on the day of admission was found down off her bed at a strange angle for an unknown amount of time. She was not wearing her knee immobilizer. She came into the emergency department. She is a very poor historian. She is unable to relate the details of her fall. She met SIRS criteria with a temperature of 100.4, tachycardia to 102, blood pressures of 90/ 60, and tachypnea, as well as with an elevated CRP. Urinalysis was 3+ leukocyte esterase, 1+ bacteria. The patient's BNP was elevated at 275. The patient was given 500 mL bolus of fluid, ceftriaxone, and was admitted to the hospital. Worked with PT. The patient was unable to bear weight on her leg. The patient related significant pain when putting weight on her leg. She was unable to state whether this was better or worse than previously. The patient had a CT while in the emergency department as above showing no hardware failure, but her knee effusion of unknown duration. The patient remained stable while in the hospital. Over the weekend, the patient worked with Physical Therapy, was unable to participate substantively in physical therapy due to pain. The patient's family states that she was unable to walk, they state very much at all , but the staff at the facility states not at all. The patient had no other complaints. The patient's vital signs were stable and was able to be discharged home on 11/24/17. The patient's blood pressure medications were reintroduced without incident during her hospitalization. They were held initially on admission. The patient is known to have been previously supratherapeutic on her INR on at 5.37, it was held at the facility after 4.22 on 11/19/17 and then 2.29 on 11/21/17. The patient was restarted on first 1 mg and then 2 mg daily of warfarin while in the hospital and her INR dropped all the way down to 1.25. The patient was restarted on her listed home dose of 2.5 mg daily. The patient should continue with this dose and have a repeat INR drawn in 3 days. The patient had an elevated troponin on admission, which was believed to be demand ischemia due to infection in the setting of known coronary artery disease. PHYSICAL EXAMINATION ON THE DAY OF DISCHARGE: The patient is an 86-year-old female, who appears stated age and sitting comfortably in bed, in no acute distress. Vital signs at the time of discharge: Temperature 99.6, pulse rate 93, respiratory rate 16, oxygen saturation 99% on room air, blood pressure 116/ 72. HEENT: Head normocephalic, atraumatic. Sclerae anicteric. No conjunctival injection. Nasal mucosa moist, oral mucosa moist. No pharyngeal erythema, discharge, or exudate. Neck: Supple and nontender. No lymphadenopathy. No carotid bruit auscultated. No JVD. Cardiac: Regular rate and rhythm. Grade 2/6 holosystolic murmur heard best at the left lower sternal border. Pulses are 2+ in the bilateral dorsalis pedis, posterior tibial , and radial areas. No bilateral calf tenderness or lower edema or swelling. Respiratory: Clear to auscultation bilaterally. No wheezes, rales, or rhonchi. Good air exchange bilaterally. Abdomen: Soft, nontender, and nondistended. Bowel sounds present and normoactive in all 4 quadrants. No hepato-splenomegaly. No abdominal bruits auscultated. Skin: Clean, dry, and intact. Multiple surgical incisions on the right lower extremity with no signs of infection from most recent surgical incision, slight ecchymosis over the right knee calf seemingly in the stage of healing. No other rash. Neuro: Cranial nerves II through XII intact. No focal deficits. Sensation intact distally to the leg immobilizer. Alert only to self, very pleasantly confused. LABORATORY DATA ON THE DAY OF DISCHARGE: White blood cell count 7.0, hemoglobin 10.4, platelet count 192. INR 1.25. Sodium 139, potassium 3.8, chloride 105, carbon dioxide 26, anion gap of 8, BUN 23, creatinine 1.38, glucose 93, calcium 8.9, magnesium 1.8. Other laboratory data of note from admission, troponin I on admission 0.06 x2. Total creatine kinase 161. Creatinine 1.65. INR 2.29. Hemoglobin 11.9. Nitrite positive in the urine. DISCHARGE PLAN: The patient will be discharged back to [facility], she will continue with physical therapy and occupational therapy for her leg. The patient has no new fractures. The patient should follow up with her orthopedist as scheduled for routine checks of her progress. The patient is subtherapeutic on her warfarin currently. The patient should have 2.5 mg daily and have this checked per protocol with the first check being maximum of 3 days from now. The patient should return to the hospital for alarming symptoms such as chest pain or shortness of breath. The patient should continue on her antibiotics for 8 more doses starting on 11/25/17. The patient should follow up with facility physician as per protocol. The patient should engage in activity as tolerated and having her diet without caffeine. The patient should be weighed at least weekly for her heart failure and have her Lasix adjusted for any significant changes in weight. TIME SPENT: Approximately 60 minutes was spent on this discharge, 30 of which was spent [id number] with the patient, obtaining history and physical, and discussing treatment plan. KENRICK ALVA [id number]/[facility] #: [id number] EFREN
[2017-11-24] MEDS ORDERED: Warfarin TAB(*) 3 MG PO SCH (17:00)
[2017-11-24] MEDS ORDERED: Warfarin TAB(*) 1 MG PO SCH (17:00)
== END 2017-11-24 13:00 | DRG 720 ==
LOC: ED 06:08 → MEDTELE 12:49 → OBSVTOIN 11-22 15:32 → INTOOBSV 11-23 07:40 → OBSVTOIN 11-23 07:40
PROVIDERS: ADMIT Internal Medicine; ATTEND Internal Medicine
DX: A41.9 Sepsis, unspecified organism (principal); N39.0 Urinary tract infection, site not specified; I13.0 Hypertensive heart and chronic kidney disease with heart failure and stage 1 through stage 4 chronic kidney disease, or unspecified chronic kidney disease; B96.1 Klebsiella pneumoniae [K. pneumoniae] as the cause of diseases classified elsewhere; I48.91 Unspecified atrial fibrillation; F03.90 Unspecified dementia, unspecified severity, without behavioral disturbance, psychotic disturbance, mood disturbance, and anxiety; N18.3 Chronic kidney disease, stage 3 (moderate); I50.9 Heart failure, unspecified; M65.861 Other synovitis and tenosynovitis, right lower leg; E78.4 Other hyperlipidemia; I27.20 Pulmonary hypertension, unspecified; I08.1 Rheumatic disorders of both mitral and tricuspid valves; M17.11 Unilateral primary osteoarthritis, right knee; Z66 Do not resuscitate; M25.461 Effusion, right knee; I44.7 Left bundle-branch block, unspecified; X58.XXXD Exposure to other specified factors, subsequent encounter; W18.30XA Fall on same level, unspecified, initial encounter; S72.491D Other fracture of lower end of right femur, subsequent encounter for closed fracture with routine healing; Z87.81 Personal history of (healed) traumatic fracture; I69.391 Dysphagia following cerebral infarction; R13.10 Dysphagia, unspecified; Z79.01 Long term (current) use of anticoagulants; Z79.1 Long term (current) use of non-steroidal anti-inflammatories (NSAID); Z79.891 Long term (current) use of opiate analgesic; Z79.899 Other long term (current) drug therapy; Y92.122 Bedroom in nursing home as the place of occurrence of the external cause
CPT/HCPCS: 36415; 70450; 71045; 74176; 80048; 80053; 81003; 81015; 82248; 82550; 83605; 83735; 83880; 84484; 85025; 85610; 85730; 86140; 87040; 87077; 87086; 87186; 87641; 93005; 94760; 99285; A9270-GY; G8978-GP-CN; G8979-GP-CM; J0696; J3475